=== PATIENT | male | born 1930 | race Caucasian/White ===

== ENCOUNTER 2017-05-11 15:53 | Emergency (ER) | payer MEDICARE, BC ==
[2017-05-11] MEDS ORDERED: Furosemide 20 MG Tab PO ONE (18:46)
--- NOTE | 2017-05-11 18:49 | EDM.PDOC ---
ED HPI GENERAL MEDICAL PROBLEM - General Chief Complaint: Fever Stated Complaint: FEVER Time Seen by Provider: 05/11/17 16:59 Source of Information: Reports: Patient, Family History Limitations: Reports: Altered Mental Status, Physical Impairment - History of Present Illness INITIAL COMMENTS - FREE TEXT/NARRATIVE: 86 years old w m with multiple medical issues, including CHF was brought to the ed by his SO due to mild elevation of his temp to 100 F. Pt is wheelchair bound , unable to ambulate for several years. Pt received Tylenol [employer]IST. Temp on arrival was 36.6. Pt denies any other acute medical issue BP 136/93 Temp 36.7 pulse ox RA 94% RR 16 Onset: Gradual Onset Date: 05/07/17 Onset Time: 07:00 Duration: Day(s):, Getting Worse Location: Reports: Chest Quality: Reports: Other (chf) Severity: Mild Improves with: Reports: Rest Worsens with: Reports: Movement Associated Symptoms: Reports: No Other Symptoms - Related Data Allergies Allergy/AdvReac Type Severity Reaction Status Date / Time No Known Allergies Allergy Verified 05/11/17 16:57 Home Meds: Home Meds Ca Cmb No.1/Vit D3/B-6/FA/B12 [Vitamin D3 1,000 Unit] 1 each PO DAILY 03/19/13 [ History] Dexameth/Neomycin/Polymyxin B [Maxitrol Ophth Susp] 5 ml EYERT DAILY 03/19/13 [ History] Metoprolol Succinate [Toprol XL] 25 mg PO DAILY 03/19/13 [History] Multivitamins/Minerals/Lutein [Certavite SR with Lutein] 1 tab PO DAILY [History] Omeprazole [Prilosec] 40 mg PO DAILY 03/19/13 [History] Potassium Chloride 20 meq PO DAILY 03/19/13 [History] Acetaminophen [Tylenol] 650 mg PO Q4H PRN 03/23/13 [History] Benazepril/Hydrochlorothiazide [Benazepril-HCTZ 20-12.5 MG Tablet] 1.5 tab PO DAILY 03/23/13 [History] Bisacodyl [Biscolax] 10 mg RECTAL DAILY PRN 03/23/13 [History] Furosemide [Lasix] 20 mg PO BID 03/23/13 [History] Glycerin 1 each RC ASDIRECTED PRN 03/23/13 [History] Hydrocodone/Acetaminophen [[place] 5-325] 1 tab PO Q4H PRN 03/23/13 [History] Iron Polysaccharides Complex [Ferrex 150] 1 cap PO DAILY 03/23/13 [History] Magnesium Hydroxide [Milk of Magnesia] 30 ml PO DAILY PRN 03/23/13 [History] Menthol [Cough Drops] 4.6 mg MM ASDIRECTED PRN 03/23/13 [History] Na Phos,M-B/Na Phos,DI-B [Fleet Enema] 1 bottle RECTAL DAILY PRN 03/23/13 [ History] PEG 400/Propylene Glycol [Systane 0.4-0.3%] 2 drop EYEBOTH BID PRN 03/23/13 [ History] Rifampin 300 mg PO DAILY 03/23/13 [History] Sucralfate [Carafate] 1 gm PO ACBED 03/23/13 [History] guaiFENesin [Cough Syrup] 2 tsp PO Q4HR PRN 03/23/13 [History] Past Medical History Cardiovascular History: Reports: Afib, Hypertension Respiratory History: Reports: Sleep Apnea Psychiatric History: Reports: Depression Endocrine/Metabolic History: Reports: Diabetes, Type II Hematologic History: Reports: Anemia, Anticoagulation Therapy Oncologic (Cancer) History: Reports: Other (See Below) Other Oncologic History: malig neoplasm prostate Dermatologic History: Reports: Other (See Below) Other Dermatologic History: stasis dermatitis RLE - Past Surgical History Musculoskeletal Surgical History: Reports: Hip Replacement, Knee Replacement Social & Family History - Tobacco Use Smoking Status *Q: Never Smoker Second Hand Smoke Exposure: No - Caffeine Use Caffeine Use: Reports: Coffee - Alcohol Use Days Per Week of Alcohol Use: 0 - Recreational Drug Use Recreational Drug Use: No ED ROS GENERAL - Review of Systems Review Of Systems: Unable To Obtain ED EXAM, GENERAL - Physical Exam Exam: See Below Exam Limited By: Physical Impairment General Appearance: Alert, WD/WN, Mild Distress Eye Exam: Bilateral Eye: Normal Inspection Ears: Normal External Exam Ear Exam: Bilateral Ear: Auricle Normal Nose: Normal Inspection Throat/Mouth: Normal Inspection, Normal Lips Head: Atraumatic, Normocephalic Neck: Normal Inspection, Other (pos JVD) Respiratory/Chest: Crackles (minor) Cardiovascular: Normal Peripheral Pulses Peripheral Pulses: 1+: Brachial (L), Brachial (R) GI/Abdominal: Normal Bowel Sounds (Male) Exam: Deferred Rectal (Males) Exam: Deferred Back Exam: Normal Inspection Extremities: Pedal Edema (chronic) Neurological: Alert, Oriented, CN II-XII Intact, Normal Cognition, Other ( wheelchair) Psychiatric: Normal Affect, Normal Mood Skin Exam: Warm, Dry, Intact Lymphatic: No Adenopathy Course - Vital Signs Text/Narrative:: 86 years old w m with multiple medical issues, including CHF was brought to the ed by his SO due to mild elevation of his temp to 100 F. Pt is wheelchair bound , unable to ambulate for several years. Pt received Tylenol [employer]. Temp on arrival was 36.6. Pt denies any other acute medical issue BP 136/93 Temp 36.7 pulse ox RA 94% RR 16 PE: Obese 86 y.o.w.m NAD Minor cracles lower chest Imaging: CXR enlarged HS, no active CHF no infiltrate/pneumonia Labs: BNP . 4000 Impression: Elevated BNP, CHF Tx: Lasix Reexam: Improved Plan: D/C with instructions Imaging: Cardiomegaly, no CHF Tx: Lasix 20 mg Reexam: Improved Plan: D/C with instructions Last Recorded V/S: Last Vital Signs Temp 37.2 C 05/11/17 19:00 Pulse 77 05/11/17 19:00 Resp 16 05/11/17 19:00 BP 133/66 05/11/17 19:00 Pulse Ox 98 05/11/17 19:00 - Orders/Labs/Meds Orders: Active Orders 24 hr Category Date Time Status CXR [Chest 2V] [CR] Stat Exams 05/11/17 16:17 Taken Labs: Laboratory Tests 05/11/17 05/11/17 05/11/17 Range/Units 17:55 17:55 17:55 WBC 11.3 (4.5-12.0) X10-3/uL RBC 4.61 (4.30-5.75) x10(6)uL Hgb 13.1 (11.5-15.5) g/dL Hct 38.6 (30.0-51.3) % MCV 83.6 (80-96) fL MCH 28.3 (27.7-33.6) pg MCHC 33.9 (32.2-35.4) g/dL RDW 16.1 H (11.5-15.5) % Plt Count 207 (125-369) X10(3)uL MPV 8.3 (7.4-10.4) fL Neut % (Auto) 77.3 (46-82) % Lymph % (Auto) 16.4 (13-37) % [place] % (Auto) 5.1 (4-12) % Eos % (Auto) 1 (1.0-5.0) % Baso % (Auto) 0 (0-2) % Neut # (Auto) 8.7 H (1.6-8.3) # Lymph # (Auto) 1.9 (0.6-5.0) # [place] # (Auto) 0.6 (0.0-1.3) # Eos # (Auto) 0.1 (0.0-0.8) # Baso # (Auto) 0.0 (0.0-0.2) # Sodium 134 L (135-145) mmol/L Potassium 4.3 (3.5-5.3) mmol/L Chloride 101 (100-110) mmol/L Carbon Dioxide 23 (23-29) mmol/L BUN 18 (8-23) mg/dL Creatinine 1.1 (0.6-1.3) mg/dL Est Cr Clr Drug Dosing 59.75 mL/min Estimated GFR (MDRD) > 60 (>60) BUN/Creatinine Ratio 16.4 (9-20) Glucose 172 H (80-116) mg/dL Lactic Acid 1.4 (0.5-2.2) mmol/L Calcium 8.9 (8.6-10.2) mg/dL NT-Pro-B Natriuret Pep (5-450) pg/mL 05/11/ Range/Units 17:55 WBC (4.5-12.0) X10-3/uL RBC (4.30-5.75) x10(6)uL Hgb (11.5-15.5) g/dL Hct (30.0-51.3) % MCV (80-96) fL MCH (27.7-33.6) pg MCHC (32.2-35.4) g/dL RDW (11.5-15.5) % Plt Count (125-369) X10(3)uL MPV (7.4-10.4) fL Neut % (Auto) (46-82) % Lymph % (Auto) (13-37) % [place] % (Auto) (4-12) % Eos % (Auto) (1.0-5.0) % Baso % (Auto) (0-2) % Neut # (Auto) (1.6-8.3) # Lymph # (Auto) (0.6-5.0) # [place] # (Auto) (0.0-1.3) # Eos # (Auto) (0.0-0.8) # Baso # (Auto) (0.0-0.2) # Sodium (135-145) mmol/L Potassium (3.5-5.3) mmol/L Chloride (100-110) mmol/L Carbon Dioxide (23-29) mmol/L BUN (8-23) mg/dL Creatinine (0.6-1.3) mg/dL Est Cr Clr Drug Dosing mL/min Estimated GFR (MDRD) (>60) BUN/Creatinine Ratio (9-20) Glucose (80-116) mg/dL Lactic Acid (0.5-2.2) mmol/L Calcium (8.6-10.2) mg/dL NT-Pro-B Natriuret Pep 4531 H (5-450) pg/mL Meds: Medications Discontinued Medications Generic Name Dose Route Start Last Admin Trade Name Freq PRN Reason Stop Dose Admin Furosemide 20 mg 05/11/17 18:46 05/11/17 18:52 Lasix PO 05/11/17 18:47 20 mg ONETIME ONE Administration Departure - Departure Time of Disposition: 18:48 Disposition: Home, Self-Care 01 Condition: Fair Clinical Impression: CHF (congestive heart failure) - Discharge Information Referrals: Nicholas Trejo MD [Primary Care Provider] - Forms: ED Department Discharge Additional Instructions: Please take increase lasix to 20 mg twice daily till seen by your PMD. Please come back if your symptoms get worse acutely - My Orders Last 24 Hours: My Active Orders 05/11/17 16:17 CXR [Chest 2V] [CR] Stat - Assessment/Plan Last 24 Hours: My Active Orders 05/11/17 16:17 CXR [Chest 2V] [CR] Stat
[2017-05-11 19:01] VITALS: BP 133/66
== END 2017-05-11 19:00 | disposition home or self-care (01) ==
LOC: FB.ED 15:53
DX: I11.0 Hypertensive heart disease with heart failure (principal); I50.9 Heart failure, unspecified; E11.9 Type 2 diabetes mellitus without complications; R79.89 Other specified abnormal findings of blood chemistry
CPT/HCPCS: 36415; 71020; 80048; 83605; 83880; 85025; 99284; A9270

== ENCOUNTER 2017-12-08 13:45 | Emergency (ER) | payer MEDICARE, BC ==
--- NOTE | 2017-12-08 13:57 | EDM.PDOC ---
ED HPI GENERAL MEDICAL PROBLEM - General Chief Complaint: General Stated Complaint: WEAKNESS Time Seen by Provider: 12/08/17 13:45 Source of Information: Reports: Patient, Family, Correction Records, RN History Limitations: Reports: Physical Impairment, Respiratory Distress, Other ( poor historian) - History of Present Illness INITIAL COMMENTS - FREE TEXT/NARRATIVE: 87 y.o.w.m with a h/o spinal stenosis, bedridden, unable to ambulate was transferred from the group home to the ed because his noticed the patient is breathing faster then usual and feel weak. No F/C, cough, no N/V no other acute medical issues. BP 137/73- Pulse 76 RR 22 Pulse ox 99% on RA temp 36.7 Onset Date: 12/06/17 Onset Time: 09:10 Duration: Day(s): Location: Reports: Chest Quality: Reports: Other (sob, RR increased) Severity: Mild Improves with: Reports: Rest Worsens with: Reports: Movement Context: Reports: Other (sedentary livestyle) Associated Symptoms: Reports: Weakness - Related Data Allergies Allergy/AdvReac Type Severity Reaction Status Date / Time Influenza Virus Vaccines Allergy Other Verified 12/08/17 13:54 Home Meds: Home Meds Multivitamins/Minerals/Lutein [Certavite SR with Lutein] 1 tab PO DAILY [History] Potassium Chloride 20 meq PO TID 03/19/13 [History] Acetaminophen [Tylenol] 650 mg PO Q4H PRN 03/23/13 [History] Bisacodyl [Biscolax] 10 mg RECTAL DAILY PRN 03/23/13 [History] Furosemide [Lasix] 20 mg PO DAILY 03/23/13 [History] Magnesium Hydroxide [Milk of Magnesia] 30 ml PO DAILY PRN 03/23/13 [History] Menthol [Cough Drops] 4.6 mg MM ASDIRECTED PRN 03/23/13 [History] PEG 400/Propylene Glycol [Systane 0.4-0.3%] 1 drop EYEBOTH DAILY 03/23/13 [ History] guaiFENesin [Cough Syrup] 2 tsp PO Q4HR PRN 03/23/13 [History] .Refresh Lacri-Lube 1 drop EYERT DAILY 12/08/17 [History] Acetaminophen [Acetaminophen Extra Strength] 1,000 mg PO BID 12/08/17 [History] Aspirin 81 mg PO DAILY 12/08/17 [History] Citalopram [Citalopram HBr] 10 mg PO DAILY 12/08/17 [History] Furosemide [Lasix] 40 mg PO DAILY 12/08/17 [History] Levofloxacin [Levaquin] 250 mg PO DAILY #2 tab 12/08/17 [Rx] Loperamide [Imodium AD] 2 mg PO QID 12/08/17 [History] Sennosides/Docusate Sodium [Senna Plus Tablet] 1 tab PO BID 12/08/17 [History] Warfarin Sodium [Coumadin] 3 mg PO MOFR 12/08/17 [History] Warfarin Sodium [Coumadin] 4 mg PO SUTUWETHSA 12/08/17 [History] glipiZIDE [Glucotrol XL] 2.5 mg PO DAILY 12/08/17 [History] metFORMIN HCl [Metformin HCl] 500 mg PO BID 12/08/17 [History] Past Medical History Cardiovascular History: Reports: Afib, Hypertension Respiratory History: Reports: Sleep Apnea Psychiatric History: Reports: Depression Endocrine/Metabolic History: Reports: Diabetes, Type II Hematologic History: Reports: Anemia, Anticoagulation Therapy Oncologic (Cancer) History: Reports: Other (See Below) Other Oncologic History: malig neoplasm prostate Dermatologic History: Reports: Other (See Below) Other Dermatologic History: stasis dermatitis RLE - Past Surgical History Musculoskeletal Surgical History: Reports: Hip Replacement, Knee Replacement Social & Family History - Caffeine Use Caffeine Use: Reports: Coffee ED ROS GENERAL - Review of Systems Review Of Systems: Unable To Obtain (poor historian) ED EXAM, GENERAL - Physical Exam Exam: See Below Exam Limited By: Physical Impairment General Appearance: Alert, No Apparent Distress, Obese Eye Exam: Bilateral Eye: Normal Inspection Ears: Normal External Exam Ear Exam: Bilateral Ear: Auricle Normal Nose: Normal Inspection, Normal Mucosa, No Blood Throat/Mouth: Normal Inspection, Normal Lips, Normal Voice, No Airway Compromise Head: Atraumatic, Normocephalic Neck: Normal Inspection, Supple, Non-Tender, Full Range of Motion Respiratory/Chest: No Respiratory Distress, Lungs Clear, No Accessory Muscle Use , Chest Non-Tender Cardiovascular: Normal Peripheral Pulses, Regular Rate, Rhythm, No Edema, No Gallop Peripheral Pulses: 1+: Carotid (L) GI/Abdominal: Normal Bowel Sounds, Soft, Non-Tender, No Organomegaly (Male) Exam: Deferred Rectal (Males) Exam: Deferred Back Exam: Normal Inspection, Full Range of Motion Extremities: Normal Inspection, Limited Range of Motion Neurological: Alert, Oriented, CN II-XII Intact, Normal Cognition, Abnormal Gait (unable to ambulate) Psychiatric: Normal Affect Skin Exam: Warm, Dry, Intact, Normal Color, No Rash Lymphatic: No Adenopathy Course - Vital Signs Text/Narrative:: 87 y.o.w.m with a h/o spinal stenosis, bedridden, unable to ambulate was transferred from the group home to the ed because his noticed the patient is breathing faster then usual and feel weak. No F/C, cough, no N/V no other acute medical issues. BP 137/73- Pulse 76 RR 22 Pulse ox 99% on RA temp 36.7 PE: WNWD WM in NAD Labs: CBC WNL Na 132 K 3.9 UA pos for UTI no hematuria Imaging: CXR NAD as per RAD, No CHF, No pneumonia Impression: UTI Tx: Levoquin 250 mg po x 1 (pharmacia consultated) Reexam: Improved Plan: D/C with instructions Last Recorded V/S: Last Vital Signs Temp 37.2 C 12/08/17 16:40 Pulse 79 12/08/17 16:40 Resp 20 12/08/17 16:40 BP 117/63 12/08/17 16:40 Pulse Ox 99 12/08/17 16:40 - Orders/Labs/Meds Orders: Active Orders 24 hr Category Date Time Status CXR [Chest 2V] [CR] Stat Exams 12/08/17 14:59 Taken Chest 1V Frontal [CR] Stat Exams 12/08/17 13:57 Taken CULTURE URINE [RM] Routine Lab 12/08/17 14:17 Received UA W/MICROSCOPIC [URIN] Stat Lab 12/08/17 14:17 Ordered Labs: Laboratory Tests 12/08/17 12/08/17 12/08/17 Range/Units 14:00 14:11 14:11 WBC 9.2 (4.5-12.0) X10-3/uL RBC 4.84 (4.30-5.75) x10(6)uL Hgb 13.7 (11.5-15.5) g/dL Hct 40.2 (30.0-51.3) % MCV 83.2 (80-96) fL MCH 28.3 (27.7-33.6) pg MCHC 34.0 (32.2-35.4) g/dL RDW 14.5 (11.5-15.5) % Plt Count 244 (125-369) X10(3)uL MPV 8.2 (7.4-10.4) fL Neut % (Auto) 59.8 (46-82) % Lymph % (Auto) 23.0 (13-37) % [place] % (Auto) 11.9 (4-12) % Eos % (Auto) 5 (1.0-5.0) % Baso % (Auto) 1 (0-2) % Neut # (Auto) 5.5 (1.6-8.3) # Lymph # (Auto) 2.1 (0.6-5.0) # [place] # (Auto) 1.1 (0.0-1.3) # Eos # (Auto) 0.4 (0.0-0.8) # Baso # (Auto) 0.1 (0.0-0.2) # PT 35.3 H* (8.7-11.1) INR 3.69 H (0.89-1.13) Sodium (135-145) mmol/L Potassium (3.5-5.3) mmol/L Chloride (100-110) mmol/L Carbon Dioxide (21-32) mmol/L BUN (7-18) mg/dL Creatinine (0.70-1.30) mg/dL Est Cr Clr Drug Dosing mL/min Estimated GFR (MDRD) (>60) BUN/Creatinine Ratio (9-20) Glucose (80-116) mg/dL Lactic Acid (0.4-2.2) mmol/L Calcium (8.6-10.2) mg/dL NT-Pro-B Natriuret Pep 3068 H* (<=450) pg/mL Urine Color (YELLOW) Urine Appearance (CLEAR) Urine pH (5.0-6.5) Ur Specific [place] (1.010-1.025) Urine Protein (NEGATIVE) mg/dL Urine Glucose (UA) (NEGATIVE) mg/dL Urine Ketones (NEGATIVE) mg/dL Urine Occult Blood (NEGATIVE) Urine Nitrite (NEGATIVE) Urine Bilirubin (NEGATIVE) Urine Urobilinogen (NEGATIVE) mg/dL Ur Leukocyte Esterase (NEGATIVE) Urine RBC (0) Urine WBC (0) Ur Squamous Epith Cells (NS,R,O) Urine Bacteria (NS) 12/08/17 12/08/17 12/08/17 Range/Units 14:11 14:17 15:10 WBC (4.5-12.0) X10-3/uL RBC (4.30-5.75) x10(6)uL Hgb (11.5-15.5) g/dL Hct (30.0-51.3) % MCV (80-96) fL MCH (27.7-33.6) pg MCHC (32.2-35.4) g/dL RDW (11.5-15.5) % Plt Count (125-369) X10(3)uL MPV (7.4-10.4) fL Neut % (Auto) (46-82) % Lymph % (Auto) (13-37) % [place] % (Auto) (4-12) % Eos % (Auto) (1.0-5.0) % Baso % (Auto) (0-2) % Neut # (Auto) (1.6-8.3) # Lymph # (Auto) (0.6-5.0) # [place] # (Auto) (0.0-1.3) # Eos # (Auto) (0.0-0.8) # Baso # (Auto) (0.0-0.2) # PT (8.7-11.1) INR (0.89-1.13) Sodium 132 L (135-145) mmol/L Potassium 4.1 (3.5-5.3) mmol/L Chloride 97 L D (100-110) mmol/L Carbon Dioxide 28 (21-32) mmol/L BUN 22 H (7-18) mg/dL Creatinine 1.4 H (0.70-1.30) mg/dL Est Cr Clr Drug Dosing 43.60 mL/min Estimated GFR (MDRD) 48 L (>60) BUN/Creatinine Ratio 15.7 (9-20) Glucose 168 H (80-116) mg/dL Lactic Acid 2.1 (0.4-2.2) mmol/L Calcium 9.1 (8.6-10.2) mg/dL NT-Pro-B Natriuret Pep (<=450) pg/mL Urine Color Yellow (YELLOW) Urine Appearance Cloudy (CLEAR) Urine pH 5.0 (5.0-6.5) Ur Specific [place] 1.015 (1.010-1.025) Urine Protein Negative (NEGATIVE) mg/dL Urine Glucose (UA) Normal (NEGATIVE) mg/dL Urine Ketones Negative (NEGATIVE) mg/dL Urine Occult Blood Moderate H (NEGATIVE) Urine Nitrite Negative (NEGATIVE) Urine Bilirubin Negative (NEGATIVE) Urine Urobilinogen Normal (NEGATIVE) mg/dL Ur Leukocyte Esterase Large H (NEGATIVE) Urine RBC 5-10 (0) Urine WBC >100 H (0) Ur Squamous Epith Cells Occasional (NS,R,O) Urine Bacteria Many H (NS) Meds: Medications Discontinued Medications Generic Name Dose Route Start Last Admin Trade Name Freq PRN Reason Stop Dose Admin Levofloxacin 500 mg 12/08/17 14:48 12/08/17 15:09 Levaquin PO 12/08/17 14:49 Not Given ONETIME ONE Levofloxacin 250 mg 12/08/17 14:52 12/08/17 14:54 Levaquin PO 12/08/17 14:53 250 mg Q24H STA Administration Departure - Departure Time of Disposition: 16:29 Disposition: Home, Self-Care 01 Condition: Good Clinical Impression: UTI (urinary tract infection) Qualifiers: Urinary tract infection type: acute cystitis Hematuria presence: without hematuria Qualified Code(s): N30.00 - Acute cystitis without hematuria - Discharge Information Prescriptions: Levofloxacin [Levaquin] 250 mg PO DAILY #2 tab Instructions: Urinary Tract Infection, Adult Referrals: Nicholas Trejo MD [Primary Care Provider] - Forms: ED Department Discharge Additional Instructions: Please take the Abx as recommended, please f/u come back if your symptoms get worse acutely. Change Coumadine to 3 mg daily, INR check in 3 days. - My Orders Last 24 Hours: My Active Orders 12/08/17 13:57 Chest 1V Frontal [CR] Stat 12/08/17 14:17 CULTURE URINE [RM] Routine UA W/MICROSCOPIC [URIN] Stat 12/08/17 14:59 CXR [Chest 2V] [CR] Stat - Assessment/Plan Last 24 Hours: My Active Orders 12/08/17 13:57 Chest 1V Frontal [CR] Stat 12/08/17 14:17 CULTURE URINE [RM] Routine UA W/MICROSCOPIC [URIN] Stat 12/08/17 14:59 CXR [Chest 2V] [CR] Stat
[2017-12-08] MEDS ORDERED: Levofloxacin 250 MG Tab PO ONE (14:48)
[2017-12-08] MEDS ORDERED: Levofloxacin 250 MG Tab PO STA (14:52)
[2017-12-08 17:08] VITALS: BP 117/63
--- NOTE | 2017-12-09 07:46 | CR ---
INDICATION: Coughing up blood. CHEST: A single AP upright portable view of the chest was obtained 12/08/2017 and compared with 05/11/2017. The upper lung field pulmonary vasculature was slightly prominent, raising question of a minimal degree or early CHF. The heart is slightly enlarged. Calcification is seen in the arch of the aorta. Dextroconvex scoliosis of the upper middle thoracic spine is noted. Heavy markings are noted in the lung bases but particularly on the left, making it difficult to exclude pneumonia. Interstitial changes may be on the basis of fibrosis, edema, and/or pneumonia. Full inspiration PA and lateral views of the chest may be helpful for further evaluation, when clinically possible. Report was given by phone to Dr. Gusman at 1500 hours on 12/08/2017. [facility]
--- NOTE | 2017-12-09 08:01 | CR ---
INDICATION: Coughing up blood, need better visualization than portable study. 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 Heavy markings are noted at the lung bases, especially on the left, making it difficult to entirely exclude minimal patchy bronchopneumonia; however, no consolidating pneumonia or effusion was seen. No definite evidence of CHF was seen. IMPRESSION: No definite acute process. Report was called to Dr. Gusman at 1628 hours on 12/08/2017. [facility]
== END 2017-12-08 16:40 | disposition home or self-care (01) ==
LOC: FB.ED 13:45
DX: N30.00 Acute cystitis without hematuria (principal); I10 Essential (primary) hypertension; E11.9 Type 2 diabetes mellitus without complications; I48.91 Unspecified atrial fibrillation; Z88.7 Allergy status to serum and vaccine; Z79.82 Long term (current) use of aspirin; Z79.899 Other long term (current) drug therapy; Z79.01 Long term (current) use of anticoagulants; Z79.84 Long term (current) use of oral hypoglycemic drugs
CPT/HCPCS: 36415; 71045; 71046; 80048; 81001; 83605; 83880; 85025; 85610; 87086; 87088; 99285; A9270; 87186

== ENCOUNTER 2018-02-27 13:34 | Observation (INO) | payer MEDICARE, BC ==
[2018-02-27] MEDS ORDERED: Acetaminophen 325 MG Tab PO PRN (13:39)
[2018-02-27] MEDS ORDERED: Sodium Chloride 0.9% 250 ML IV SCH (14:30)
[2018-02-27] MEDS: Sodium Chloride 0.9% 10 ML Syringe FLUSH PRN ×2 (14:45→16:45)
[2018-02-27] MEDS ORDERED: ceFAZolin 2 GM in Premix Bag 1 BAG IV SCH (14:45)
[2018-02-27] MEDS: Sodium Chloride 0.9% 250 ML IV SCH ×3 (15:20→17:45)
[2018-02-27] MEDS: Potassium Chloride 20 MEQ Tab.ER *PTOM PO SCH ×2 (15:59→21:03)
[2018-02-27] MEDS: ceFAZolin 2 GM in Premix Bag 1 BAG IV SCH (16:23)
[2018-02-27] MEDS: CLINDAMYCIN HCL 150 MG PO SCH ×2 (17:41→21:03)
[2018-02-27] MEDS: metFORMIN 500 MG Tab *PTOM PO SCH (17:43)
[2018-02-27] MEDS: PROPYLENE GLYCOL EYEBOTH SCH (21:04)
[2018-02-27] MEDS: POLYETHYLENE GLYCOL 400 EYEBOTH SCH (21:04)
[2018-02-27] MEDS: Terbinafine 1% Crm 30 GM Tube TOP SCH ×2 (21:10→21:11)
[2018-02-28] MEDS: ceFAZolin 2 GM in Premix Bag 1 BAG IV SCH ×3 (00:19→08:08)
[2018-02-28] MEDS: Sodium Chloride 0.9% 10 ML Syringe FLUSH PRN ×3 (00:34→09:00)
[2018-02-28] MEDS ORDERED: Sodium Chloride 0.9% 10 ML Syringe FLUSH PRN (08:55)
[2018-02-28] MEDS ORDERED: Levofloxacin 250 MG Tab PO SCH (09:00)
[2018-02-28] MEDS: Lactated Ringers 1,000 ML IV SCH ×2 (09:00→16:11)
[2018-02-28] MEDS ORDERED: Propofol 200 MG/20 ML SDV IV ONE (09:45)
[2018-02-28] MEDS ORDERED: Ondansetron 4 MG/2 ML SDV IVPUSH ONE (09:45)
[2018-02-28] MEDS ORDERED: Ketamine 500 mg/10 ML MDV IV ONE (09:45)
[2018-02-28] MEDS ORDERED: Bupivacaine 0.5% 30 ML SDV INJECT ONE (10:16)
[2018-02-28] MEDS: metFORMIN 500 MG Tab *PTOM PO SCH ×2 (12:50→18:11)
[2018-02-28] MEDS: Potassium Chloride 20 MEQ Tab.ER *PTOM PO SCH ×3 (12:51→20:03)
[2018-02-28] MEDS: GLIPIZIDE 5 MG PO SCH (12:51)
[2018-02-28] MEDS: Polyethylene Glycol 3350 Powder 238 GM Bot *PTOM PO SCH (12:51)
[2018-02-28] MEDS: CLINDAMYCIN HCL 150 MG PO SCH ×4 (12:51→20:03)
--- NOTE | 2018-02-28 15:25 | OR ---
DATE OF OPERATION: 02/28/2018 SURGEON: Carmelo Santo DO PREOPERATIVE DIAGNOSIS: Right knee cellulitis. POSTOPERATIVE DIAGNOSES: Right knee cellulitis including skin, subcutaneous tissue, deep fascia, and tendon. PROCEDURES: 1. Irrigation debridement, right knee. 2. Application of small wound VAC with measurements 2.5 cm x 2.5 cm x 0.5 cm. ANESTHESIA: Conscious sedation. FLUID: Lactated Ringer's solution. ESTIMATED BLOOD LOSS: Less than 10 mL. COMPLICATIONS: None. SPECIMEN: Aerobic and anaerobic cultures as well as tissue. DISCHARGE DISPOSITION: Stable to PACU. HISTORY/INDICATIONS FOR THE PROCEDURE: The patient was seen preoperatively by Dr. Wang, who consulted me. The patient previously seen his primary care physician, who had noticed a tracking infection. The patient had a right knee done by Dr. Pickering about approximately 5 years earlier. He did have a bad infection problem at that time, this did resolve. He states that he bumped his right knee during a transfer. He had increased cellulitis. Cultures were taken prior to the surgery, which showed Staph. I did place him on preoperative antibiotics at that point in time, and he was already on oral antibiotics. The risks and benefits of the procedure explained to the patient and family. Informed consent obtained. PROCEDURE IN DETAIL: The patient was seen preoperatively by myself and Anesthesia Staff in the preoperative holding area, where operative site was marked. He was brought to the operative suite by Anesthesia staff where conscious sedation was administered. The right lower extremity was then prepped and draped in a sterile manner. Time-out was called identifying the correct patient, correct procedure, the correct site, and that the antibiotics had been begun within the appropriate period of time. There was an area of drainage of approximately 0.75 cm in diameter with some soft tissue coming out. I then took cultures and was able to use a Q-tip from the culture to track where the area was on to the skin and it did not appear to go into the joint. I then removed any of the necrotic skin resulting in about 2.5 cm diameter area and then carefully debrided any of the soft tissue. This was down to the level of the patellar tendon as well as the medial patellar retinaculum inferior to the patella. Once I got this cleaned up and used a curette to freshen everything up and then used the Bovie electrocautery to control any bleeding. I then applied a small wound VAC and set the pressure to 125 mmHg. After this had been performed, we then transferred the patient to his hospital bed and taken to the PACU in stable condition. /[id number] AMILCAR/LYNNE
[2018-02-28] MEDS: Terbinafine 1% Crm 30 GM Tube TOP SCH (16:11)
[2018-02-28] MEDS: Ertapenem 1 GM in Sodium Chloride 0.9% 50 ML IV SCH (19:23)
[2018-02-28] MEDS: PROPYLENE GLYCOL EYEBOTH SCH (20:04)
[2018-02-28] MEDS: POLYETHYLENE GLYCOL 400 EYEBOTH SCH (20:04)
[2018-03-01] MEDS: Lactated Ringers 1,000 ML IV SCH ×3 (00:10→19:24)
[2018-03-01] MEDS: Polyethylene Glycol 3350 Powder 238 GM Bot *PTOM PO SCH (09:32)
[2018-03-01] MEDS: metFORMIN 500 MG Tab *PTOM PO SCH ×2 (09:33→18:09)
[2018-03-01] MEDS: CLINDAMYCIN HCL 150 MG PO SCH (09:34)
[2018-03-01] MEDS: Furosemide 20 MG Tab *PTOM PO SCH ×2 (09:34→13:16)
[2018-03-01] MEDS: Citalopram 10 MG Tab *PTOM PO SCH (09:34)
[2018-03-01] MEDS: GLIPIZIDE 5 MG PO SCH (09:35)
[2018-03-01] MEDS: Potassium Chloride 20 MEQ Tab.ER *PTOM PO SCH ×3 (09:35→20:38)
[2018-03-01] MEDS: Ertapenem 1 GM in Sodium Chloride 0.9% 50 ML IV SCH (19:26)
[2018-03-01] MEDS: POLYETHYLENE GLYCOL 400 EYEBOTH SCH (20:39)
[2018-03-01] MEDS: PROPYLENE GLYCOL EYEBOTH SCH (20:39)
[2018-03-02] MEDS: Lactated Ringers 1,000 ML IV SCH (03:45)
--- NOTE | 2018-03-02 07:12 | PN ---
DATE SEEN: 02/28/2018 SUBJECTIVE: John Cat is an 87-year-old male, scheduled for exploration of right knee wound and intervention. Dr. Santo, provider of record. He had a pretty good night. Slept well. No particular complaints. OBJECTIVE: VITAL SIGNS: 36.8, pulse of 88, 142/78, 18, 94%. GENERAL: A bit drowsy but appropriate. Neck benign. Thyroid small. CHEST: Clear in all lung camacho. HEART: Heart sounds distant. ABDOMEN: Benign, wound inspection by Dr. Santo. ASSESSMENT: Stable for surgery. PLAN: EKG was reviewed. Atrial fibrillation, known, rate controlled, 79. Coumadin had been on board, INR today 1.96. No contraindications for controlled surgical intervention. /[id number] RAVI/LYNNE
--- NOTE | 2018-03-02 07:12 | PREOP ---
ADMISSION DATE: 02/27/2018 REASON FOR VISIT: Right knee open sore. HISTORY OF PRESENT ILLNESS: John Cat is an 87-year-old, male, a resident of [facility], seen by Dr. Wang and then in consultation with Orthopedics for an open wound in the right leg. Timing, duration, and circumstances uncertain on my part, the patient's history of little benefit but no pain by description. Nursing staff who has cared from the longterm has commented that this sore is open and closed on repetitive times. Surgical management is planned for tomorrow under orthopedics management. MEDICATIONS: Daily medications include: 1. Senna-S 1 p.o. daily, constipation. 2. Furosemide 40 mg the morning, 20 at noon; edema. 3. Systane 1 drop each eye, dry eyes. 4. Cerovite formula tablet 1 daily, nutrition. 5. Refresh p.r.n. eye drops. 6. Citalopram 10 mg 1 p.o. daily, mood stabilizer. 7. Metformin 500 mg 1 p.o. b.i.d., NIDDM. 8. Dulcolax suppository p.r.n. constipation. 9. Beclomethasone cream b.i.d. p.r.n. dry skin. 10.Afrin each nostril b.i.d. p.r.n. 11.Warfarin per protocol. 12.Acetaminophen p.r.n. for pain. 13.Potassium chloride 20 mEq 1 p.o. t.i.d. hypokalemia. 14.Milk of magnesia p.r.n. 15.Biotene mouthwash p.r.n. 16.Baby aspirin. ALLERGIES: No medication, environmental, or latex allergies. PAST MEDICAL HISTORY: Significant for multiple procedures including cholecystectomy, bilateral hip arthroplasty, bilateral knee arthroplasty, prosthetic right eye, fusion of his lumbar spine, and cataract surgery of left eye. Chronic illnesses include hypertension; chronic atrial fibrillation, on Coumadin therapy; osteoarthritis; and prosthetic right eye. 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 in good health. The patient is presently at longterm. Smoked remotely in the past. Minimal alcohol consumption. No illicit drug use. FAMILY HISTORY: Noncontributory due to age. REVIEW OF SYSTEMS: CONSTITUTIONAL: For the most part, care dependent. HEENT: Absent vision, right eye. Hearing, some difficulty in crowds. Oropharynx, a few teeth still in place. CHEST: No cough, wheeze, or congestion. CARDIOVASCULAR: No chest pain, palpitations, or syncope. GI: Regular predictable stools, occasional constipation. : Some incontinence in diaper today. MUSCULOSKELETAL: Generalized joint complaints. NEUROLOGIC: Thought processing reasonable. PHYSICAL EXAMINATION: VITAL SIGNS: 36.8; 155/82; pulse is irregularly irregular at 101; 94% in room air; and 18 respirations. GENERAL: Elderly gentleman, appears appropriate age. Speech and conduct appropriate. HEENT: Left eye, funduscopic benign. Prosthesis in right eye. Bright tympanic membranes. Decreased hearing. Clear nasal discharge. Mouth and oropharynx, clear. A few teeth in place, intact, no loose teeth. NECK: No adenopathy. Thyroid small. CHEST: Clear in all lung camacho. No adventitious sounds. HEART: Regular, without ectopy or murmur. BREASTS: Normal male breasts. ABDOMEN: Benign. Well-healed surgical scar of right upper quadrant. AND RECTAL: Deferred. EXTREMITIES: Moderate edema. Ulcerative lesion in medial left knee, total arthroplasty surgical scars. Pulses diminished in both lower extremities. Venous stasis changes. LABORATORY STUDIES: White count 9000, hemoglobin 12.8, and hematocrit 39.5. Sodium 134, GFR 59. Radiographs none. ASSESSMENT: Preoperative examination for surgical debridement of right medial knee lesion, Orthopedics intervention. PLAN: Risks, benefits, and expectations have been discussed with Orthopedics, complementary care and well being, fresh frozen plasma being given as an appropriate alternative to normalize his INR, brief duration without Coumadin not problematic. All medications can be held on the night of the procedure. /[id number] RAVI/LYNNE
--- NOTE | 2018-03-02 07:15 | PN ---
DATE SEEN: 03/01/2018 HISTORY OF PRESENT ILLNESS: Mr. Cat is an 87-year-old male, who underwent exploration of the right knee wound and placement of a suction catheter. Dr. Carmelo Santo, provider of record. Presently on ertapenem intravenously, 1 g q.[address] hours. Wound VAC in place. Describes no pain. PHYSICAL EXAMINATION: VITAL SIGNS: 36.8, 73, 135/80, 18, 92% on 2 L. GENERAL: Appears comfortable. No pain. CHEST: Clear in all lung camacho. HEART: Without ectopy or murmur. ABDOMEN: Benign. EXTREMITIES: Wound VAC in place, right medial knee with appropriate serosanguinous bloody discharge. ASSESSMENT: Wound infection, right knee. PLAN: Cultures are pending, antibiotics in place. Length of time, discharge planning, and location still to be determined. /[id number] RAVI/LYNNE
[2018-03-02] MEDS: metFORMIN 500 MG Tab *PTOM PO SCH (08:41)
[2018-03-02] MEDS: Furosemide 20 MG Tab *PTOM PO SCH ×2 (08:42→12:22)
[2018-03-02] MEDS: Citalopram 10 MG Tab *PTOM PO SCH (08:47)
[2018-03-02] MEDS: GLIPIZIDE 5 MG PO SCH (08:48)
[2018-03-02] MEDS: Potassium Chloride 20 MEQ Tab.ER *PTOM PO SCH (08:49)
[2018-03-02] MEDS: Polyethylene Glycol 3350 Powder 238 GM Bot *PTOM PO SCH (08:49)
[2018-03-02 12:57] VITALS: BP 128/76
--- NOTE | 2018-03-03 12:59 | DISCH ---
DISCHARGE DATE: 03/02/2018 REASON FOR HOSPITALIZATION: Complicated left knee wound, surgical debridement and wound VAC/cellulitis. HOSPITAL COURSE: John aCt is an 87-year-old male, admitted with complicated wound, medial aspect, right knee. Seen by Dr. Wang, referred to Dr. Santo. He was taken to the OR on 02/28; underwent debridement, culture, and appropriate management; wound VAC was placed. Post wound VAC, antibiotics were instituted, ertapenem 1 g q.24 hours. Wound VAC had an issue of success on Friday the , will be readdressed on the morning of the . Spoke with Dr. Santo; antibiotics will be dependent upon culture, minimum of 3 weeks' time. PICC line had been ordered, delayed due to nursing access and will be performed either today or upon discharge at [facility]. Laboratory studies otherwise stable. PHYSICAL EXAMINATION: VITAL SIGNS: 36.5, 73, 96/56, 18, 93% on 2 L. GENERAL: Cooperative, conversant. NECK: Benign. Thyroid small. CHEST: Decreased breath sounds, but good air exchange. HEART: Sounds distant with occasional ectopy. ABDOMEN: Benign. EXTREMITIES: Wound, left knee, dressed; postsurgical changes present. PLAN: Discharged to [facility]; antibiotics per PICC line, 3 weeks' duration minimum, duration longer depending upon bug of choice. Followup appointments with Dr. Carmelo Santo, Orthopedics, [facility]. /[id number] RAVI/LYNNE
== END 2018-03-02 13:15 ==
LOC: FB.MS 13:34
PROVIDERS: ADMIT Orthopaedic Surgery; ATTEND Family Medicine
DX: L03.115 Cellulitis of right lower limb (principal); I10 Essential (primary) hypertension; H54.40 Blindness, one eye, unspecified eye; I48.2 Chronic atrial fibrillation; Z87.891 Personal history of nicotine dependence; Z79.84 Long term (current) use of oral hypoglycemic drugs; Z79.82 Long term (current) use of aspirin; Z79.01 Long term (current) use of anticoagulants; Z79.899 Other long term (current) drug therapy
CPT/HCPCS: 01320-QZ; 36415; 36430; 80048; 82962; 85025; 85610; 86850; 86900; 86901; 86920; 86922; 87070; 87075; 87205; 94150; 96361; 96365; 96366; 96367; 96375; 96376; A9270-GY; G0378; J0690; J1335; J2405; J2704; J3490; J7050; J7120; P9017

== ENCOUNTER 2018-03-03 11:02 | Emergency (ER) | payer MEDICARE, BC ==
[2018-03-03] MEDS ORDERED: Furosemide 40 MG/4 ML VIAL IVPUSH ONE ×2 (11:46→13:29)
--- NOTE | 2018-03-03 11:53 | EDM.PDOC ---
ED HPI GENERAL MEDICAL PROBLEM - General Chief Complaint: Respiratory Problem Stated Complaint: ASSESSMENT Time Seen by Provider: 03/03/18 11:40 Source of Information: Reports: Patient, Family History Limitations: Reports: No Limitations - History of Present Illness INITIAL COMMENTS - FREE TEXT/NARRATIVE: Presents from the [facility] with generalized swelling and 10 lb weight gain since last week. Patient underwent right prosthetic knee clean out due to infection on 02/28/[address] Santo and was hospitalized thereafter until yesterday. Patient has a history of heart failure and there is a possibility he could be fluid overloaded from the IVF he received. Per , patient had a few choking episodes yesterday. Denies chest pain or shortness of breath at this time. - Related Data Allergies Allergy/AdvReac Type Severity Reaction Status Date / Time Influenza Virus Vaccines Allergy Other Verified 03/03/18 12:00 Home Meds: Home Meds Multivitamins/Minerals/Lutein [Certavite SR with Lutein] 1 tab PO DAILY [History] Acetaminophen [Tylenol] 650 mg PO Q4H PRN 03/23/13 [History] Bisacodyl [Biscolax] 10 mg RECTAL Q72H PRN 03/23/13 [History] Furosemide [Lasix] 20 mg PO DAILY@119903/23/13 [History] Magnesium Hydroxide [Milk of Magnesia] 30 ml PO DAILY PRN 03/23/13 [History] Menthol [Cough Drops] 4.6 mg MM ASDIRECTED PRN 03/23/13 [History] PEG 400/Propylene Glycol [Systane Lubricant] 1 drop EYEBOTH DAILY@199903/23/13 [History] guaiFENesin [Cough Syrup] 200 mg PO Q4H PRN 03/23/13 [History] Acetaminophen [Acetaminophen Extra Strength] 1,000 mg PO BID 12/08/17 [History] Citalopram [Citalopram HBr] 10 mg PO DAILY 12/08/17 [History] Loperamide [Imodium AD] 2 mg PO ASDIRECTED 12/08/17 [History] Warfarin Sodium [Coumadin] 3 mg PO MOFR@12/08/17 [History] Warfarin Sodium [Coumadin] 4 mg PO SUTUWETHSA@199912/08/17 [History] metFORMIN HCl [Metformin HCl] 500 mg PO BIDMEALS 12/08/17 [History] Aspirin [Halfprin] 81 mg PO DAILY 02/27/18 [History] Betamethasone Dipropionate [Diprosone 0.05% Crm] 1 applic TOP BID PRN 02/27/18 [ History] Furosemide [Lasix] 40 mg PO DAILY@08 02/27/18 [History] Mineral Oil/Petrolatum,White [Lubricant Eye Ointment] 1 applic EYERT BEDTIME [History] Polyethylene Glycol 3350 [MiraLAX] 17 gm PO DAILY 02/27/18 [History] glipiZIDE [Glucotrol] 2.5 mg PO DAILY 02/27/18 [History] Ertapenem [INVanz] 1 gm IV Q24H 30 Days #30 vial 03/02/18 [Rx] Potassium Chloride [Klor-Con M20] 20 meq PO TID tab.er 03/02/18 [Rx] Past Medical History HEENT History: Reports: Hard of Hearing, Impaired Vision Cardiovascular History: Reports: Afib, Blood Clots/VTE/DVT, Heart Failure, Hypertension, Other (See Below) Other Cardiovascular History: venous insufficiency, chronic peripheral; director long term care 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 Respiratory History: Reports: Sleep Apnea, Other (See Below) Other Respiratory History: hx of thromboemobism Gastrointestinal History: Reports: Cholelithiasis Genitourinary History: Reports: BPH, Neurogenic Bladder, Prostate Disorder, Renal Calculus, Urinary Incontinence, Other (See Below) Other Genitourinary History: cancer of prostate; 2001 radiation seeds in prostate Musculoskeletal History: Reports: RA Psychiatric History: Reports: Depression, Other (See Below) Other Psychiatric History: recurrent derpressive disorder Endocrine/Metabolic History: Reports: Diabetes, Type II Hematologic History: Reports: Anemia, Anticoagulation Therapy Oncologic (Cancer) History: Reports: Other (See Below) Other Oncologic History: malig neoplasm prostate; skin cancer to face and right ear Dermatologic History: Reports: Other (See Below) Other Dermatologic History: stasis dermatitis RLE - Infectious Disease History Infectious Disease History: Reports: Chicken Pox, Influenza, Measles - Past Surgical History HEENT Surgical History: Reports: Cataract Surgery, Other (See Below) Other HEENT Surgeries/Procedures: Cataract surgery to left eye 2015 Cardiovascular Surgical History: Reports: None GI Surgical History: Reports: Cholecystectomy, Colonoscopy, Hernia, Inguinal Male Surgical History: Reports: Renal Calculus Musculoskeletal Surgical History: Reports: Hip Replacement, Knee Replacement, Other (See Below) Other Musculoskeletal Surgeries/Procedures:: venous ablation right leg January 2018; 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, neck surgery 2013 Social & Family History - Family History Family Medical History: Noncontributory - Tobacco Use Smoking Status *Q: Never Smoker - Caffeine Use Caffeine Use: Reports: Coffee - Recreational Drug Use Recreational Drug Use: No ED ROS GENERAL - Review of Systems Review Of Systems: ROS reveals no pertinent complaints other than HPI. ED EXAM, GENERAL - Physical Exam Exam: See Below Exam Limited By: No Limitations General Appearance: Alert, WD/WN, No Apparent Distress Throat/Mouth: No Airway Compromise Head: Atraumatic, Normocephalic Neck: Full Range of Motion Respiratory/Chest: No Respiratory Distress, No Accessory Muscle Use, Rhonchi Cardiovascular: Regular Rate, Rhythm GI/Abdominal: No Distention Extremities: Pedal Edema, Other (wound-vac right knee) Neurological: Alert, Normal Cognition, No Motor/Sensory Deficits Psychiatric: Normal Affect Skin Exam: Warm, Dry Course - Vital Signs Last Recorded V/S: Last Vital Signs Temp 37.1 C 03/03/18 11:15 Pulse Resp 19 03/03/18 11:15 BP 137/77 03/03/18 11:15 Pulse Ox 98 03/03/18 11:15 - Orders/Labs/Meds Orders: Active Orders 24 hr Category Date Time Status CXR [Chest 1V Frontal] [CR] Stat Exams 03/03/18 11:45 Ordered Sodium Chloride 0.9% [Saline Flush] Med 03/03/18 11:58 Active 10 ml FLUSH ASDIRECTED PRN Medication Orders Sodium Chloride (Saline Flush) 10 ml FLUSH ASDIRECTED PRN PRN Reason: Keep Vein Open Last Admin: 03/03/18 13:57 Dose: 10 ml Admin: 03/03/18 11:59 Dose: 10 ml Labs: Laboratory Tests 03/03/18 03/03/18 03/03/18 Range/Units 12:00 12:00 12:00 WBC 7.8 (4.5-12.0) X10-3/uL RBC 4.09 L (4.30-5.75) x10(6)uL Hgb 11.6 (11.5-15.5) g/dL Hct 34.9 (30.0-51.3) % MCV 85.4 (80-96) fL MCH 28.4 (27.7-33.6) pg MCHC 33.3 (32.2-35.4) g/dL RDW 16.3 H (11.5-15.5) % Plt Count 192 (125-369) X10(3)uL MPV 8.9 (7.4-10.4) fL Neut % (Auto) 62.9 (46-82) % Lymph % (Auto) 21.3 (13-37) % [place] % (Auto) 10.2 (4-12) % Eos % (Auto) 5 (1.0-5.0) % Baso % (Auto) 1 (0-2) % Neut # (Auto) 4.9 (1.6-8.3) # Lymph # (Auto) 1.7 (0.6-5.0) # [place] # (Auto) 0.8 (0.0-1.3) # Eos # (Auto) 0.4 (0.0-0.8) # Baso # (Auto) 0.0 (0.0-0.2) # PT (8.7-11.1) INR (0.89-1.13) Sodium 135 (135-145) mmol/L Potassium 3.8 (3.5-5.3) mmol/L Chloride 100 (100-110) mmol/L Carbon Dioxide 31 (21-32) mmol/L BUN 21 H (7-18) mg/dL Creatinine 1.3 (0.70-1.30) mg/dL Est Cr Clr Drug Dosing 49.65 mL/min Estimated GFR (MDRD) 52 L (>60) BUN/Creatinine Ratio 16.2 (9-20) Glucose 163 H (80-116) mg/dL Calcium 9.1 (8.6-10.2) mg/dL NT-Pro-B Natriuret Pep 3188 H* (<=450) pg/mL 03/03/18 Range/Units 12:00 WBC (4.5-12.0) X10-3/uL RBC (4.30-5.75) x10(6)uL Hgb (11.5-15.5) g/dL Hct (30.0-51.3) % MCV (80-96) fL MCH (27.7-33.6) pg MCHC (32.2-35.4) g/dL RDW (11.5-15.5) % Plt Count (125-369) X10(3)uL MPV (7.4-10.4) fL Neut % (Auto) (46-82) % Lymph % (Auto) (13-37) % [place] % (Auto) (4-12) % Eos % (Auto) (1.0-5.0) % Baso % (Auto) (0-2) % Neut # (Auto) (1.6-8.3) # Lymph # (Auto) (0.6-5.0) # [place] # (Auto) (0.0-1.3) # Eos # (Auto) (0.0-0.8) # Baso # (Auto) (0.0-0.2) # PT 13.2 H (8.7-11.1) INR 1.36 H (0.89-1.13) Sodium (135-145) mmol/L Potassium (3.5-5.3) mmol/L Chloride (100-110) mmol/L Carbon Dioxide (21-32) mmol/L BUN (7-18) mg/dL Creatinine (0.70-1.30) mg/dL Est Cr Clr Drug Dosing mL/min Estimated GFR (MDRD) (>60) BUN/Creatinine Ratio (9-20) Glucose (80-116) mg/dL Calcium (8.6-10.2) mg/dL NT-Pro-B Natriuret Pep (<=450) pg/mL Meds: Medications Generic Name Dose Route Start Last Admin Trade Name Freq PRN Reason Stop Dose Admin Sodium Chloride 10 ml 03/03/18 11:58 03/03/18 13:57 Saline Flush FLUSH 10 ml ASDIRECTED PRN Administration Keep Vein Open Discontinued Medications Generic Name Dose Route Start Last Admin Trade Name Freq PRN Reason Stop Dose Admin Furosemide 40 mg 03/03/18 11:46 03/03/18 11:59 Lasix IVPUSH 03/03/18 11:47 40 mg NOW ONE Administration Furosemide 40 mg 03/03/18 13:29 03/03/18 13:57 Lasix IVPUSH 03/03/18 13:30 40 mg NOW ONE Administration - Radiology Interpretation Free Text/Narrative:: CXR: CHF - Re-Assessments/Exams Free Text/Narrative Re-Assessment/Exam: 03/03/18 13:31 Patient had significant diuresis after Lasix 40mg IV. Case discussed with Dr. Morin, recommends an additional Lasix 40mg IV in the ED, discharge back to [place], reweigh and reassess the patient tomorrow. Departure - Departure Time of Disposition: 13:33 Disposition: DC/Tfer to SNF 03 Condition: Fair Clinical Impression: CHF exacerbation Qualifiers: Heart failure type: unspecified Qualified Code(s): I50.9 - Heart failure, unspecified - Discharge Information *PRESCRIPTION DRUG MONITORING PROGRAM REVIEWED*: No *COPY OF PRESCRIPTION DRUG MONITORING REPORT IN PATIENT CHANDU: Not Applicable Instructions: Heart Failure, [id number] Referrals: Nicholas Trejo MD [Primary Care Provider] - Forms: ED Department Discharge Additional Instructions: Continue current doses of medication. Weigh the patient tomorrow and call the primary physician for further instructions. - My Orders Last 24 Hours: My Active Orders 03/03/18 11:45 CXR [Chest 1V Frontal] [CR] Stat 03/03/18 11:58 Sodium Chloride 0.9% [Saline Flush] 10 ml FLUSH ASDIRECTED PRN - Assessment/Plan Last 24 Hours: My Active Orders 03/03/18 11:45 CXR [Chest 1V Frontal] [CR] Stat 03/03/18 11:58 Sodium Chloride 0.9% [Saline Flush] 10 ml FLUSH ASDIRECTED PRN
[2018-03-03] MEDS: Sodium Chloride 0.9% 10 ML Syringe FLUSH PRN ×2 (11:59→13:57)
[2018-03-03 14:08] VITALS: BP 120/70
== END 2018-03-03 14:43 ==
LOC: FB.ED 11:02
DX: I11.0 Hypertensive heart disease with heart failure (principal); I50.9 Heart failure, unspecified; I48.91 Unspecified atrial fibrillation; E11.9 Type 2 diabetes mellitus without complications; Z79.01 Long term (current) use of anticoagulants; Z79.899 Other long term (current) drug therapy; Z88.7 Allergy status to serum and vaccine; Z79.84 Long term (current) use of oral hypoglycemic drugs; Z96.651 Presence of right artificial knee joint
CPT/HCPCS: 36415; 80048; 83880; 85025; 85610; 96374; 99284; J1940; J7050

== ENCOUNTER 2018-08-17 13:30 | Inpatient (IN) | payer MEDICARE, BC ==
[~2018-08-17 13:30] MED LIST: Citalopram 10 MG Tab PO SCH
--- NOTE | 2018-08-17 14:04 | PCM.HP ---
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 Patient was on IV Vancomycin via PICC line after the surgery. ID following. Patient was switch to Oral Doxycycline on 06/09/2018 till current per recommendation. Patient was doing well in the long-term, till yesterday when they notice blister and discoloration of his right big toe. Patient admitted to the hospital for further evaluation. on presentation, patient is awake, alert, denies any pain in his feet. no wound discharge. vital stable. Improves with: Reports: None Worsens with: Reports: None Associated Symptoms: Reports: No Other Symptoms - Related Data Allergies/Adverse Reactions: Allergies Allergy/AdvReac Type Severity Reaction Status Date / Time Influenza Virus Vaccines Allergy Other Verified 04/10/18 01:14 Home Medications: Home Meds Multivitamins/Minerals/Lutein [Certavite SR with Lutein] 1 tab PO DAILY [History] Acetaminophen [Tylenol] 650 mg PO Q4H PRN 03/23/13 [History] Bisacodyl [Biscolax] 10 mg RECTAL Q72H PRN 03/23/13 [History] Furosemide [Lasix] 20 mg PO DAILY@1200 03/23/13 [History] Menthol [Cough Drops] 4.6 mg MM ASDIRECTED PRN 03/23/13 [History] PEG 400/Propylene Glycol [Systane Lubricant] 1 drop EYEBOTH DAILY@199903/23/13 [History] guaiFENesin [Cough Syrup] 200 mg PO Q4H PRN 03/23/13 [History] Acetaminophen [Acetaminophen Extra Strength] 1,000 mg PO BID 12/08/17 [History] Loperamide [Imodium AD] 2 mg PO ASDIRECTED 12/08/17 [History] Aspirin [Halfprin] 81 mg PO DAILY 02/27/18 [History] Betamethasone Dipropionate [Diprosone 0.05% Crm] 1 applic TOP BID PRN 02/27/18 [ History] Furosemide [Lasix] 40 mg PO DAILY@08 02/27/18 [History] Mineral Oil/Petrolatum,White [Lubricant Eye Ointment] 1 applic EYERT BEDTIME [History] glipiZIDE [Glucotrol] 2.5 mg PO DAILY 02/27/18 [History] Docosanol [Abreva 10%] 1 applic TP QID PRN 04/08/18 [History] Citalopram Hydrobromide [Celexa] 10 mg PO DAILY 04/10/18 [History] Mineral Oil/Petrolatum,White [Lubricant Eye Ointment] 1 applic EYERT BID PRN [History] Sennosides/Docusate Sodium [Senna-S] 2 tab PO BID PRN 08/17/18 [History] Warfarin [Coumadin] 4 mg PO SUTUWETHSA 08/17/18 [History] Warfarin [Coumadin] 6 mg PO MOFR 08/17/18 [History] Past Medical History HEENT History: Reports: Hard of Hearing, Impaired Vision Cardiovascular History: Reports: Afib, Blood Clots/VTE/DVT, Heart Failure, Hypertension, Other (See Below) Other Cardiovascular History: venous insufficiency, chronic peripheral; terminal makeup operator 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 Respiratory History: Reports: Sleep Apnea, Other (See Below) Other Respiratory History: hx of thromboemobism Gastrointestinal History: Reports: Cholelithiasis Genitourinary History: Reports: BPH, Neurogenic Bladder, Prostate Disorder, Renal Calculus, Urinary Incontinence, Other (See Below) Other Genitourinary History: cancer of prostate; 2000 radiation seeds in prostate 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 History: Reports: None Musculoskeletal History: Reports: RA Psychiatric History: Reports: Depression Endocrine/Metabolic History: Reports: Diabetes, Type II Hematologic History: Reports: Anemia, Anticoagulation Therapy Immunologic History: Reports: None Oncologic (Cancer) History: Reports: Other (See Below) Other Oncologic History: malig neoplasm prostate; skin cancer to face and right ear Dermatologic History: Reports: Other (See Below) Other Dermatologic History: stasis dermatitis RLE - Infectious Disease History Infectious Disease History: Reports: Chicken Pox, Influenza, Measles - Past Surgical History HEENT Surgical History: Reports: Cataract Surgery, Other (See Below) Other HEENT Surgeries/Procedures: Cataract surgery to left eye 2015 Cardiovascular Surgical History: Reports: None GI Surgical History: Reports: Cholecystectomy, Colonoscopy, Hernia, Inguinal Male Surgical History: Reports: Renal Calculus Musculoskeletal Surgical History: Reports: Hip Replacement, Knee Replacement, Other (See Below) Other Musculoskeletal Surgeries/Procedures:: venous ablation right leg January 2018; 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, neck surgery 2013 Dermatological Surgical History: Reports: Other (See Below) Social & Family History - Family History Family Medical History: Noncontributory - Caffeine Use Caffeine Use: Reports: Coffee H&P Review of Systems - Review of Systems: Review Of Systems: See Below General: Reports: No Symptoms HEENT: Reports: No Symptoms Pulmonary: Reports: No Symptoms Cardiovascular: Reports: No Symptoms, Edema (right more than left ) Gastrointestinal: Reports: No Symptoms Genitourinary: Reports: No Symptoms Skin: Reports: Change in Color, Lesions Psychiatric: Reports: No Symptoms Neurological: Reports: No Symptoms Exam - Exam Exam: See Below - Vital Signs Vital Signs: Vital sign reviewed Vital Signs - 24 hr 08/17/18 13:52 Temperature [ 37.1 C Oral] Pulse, 80 Peripheral [ Left Pulse Oximetry] Respiratory 16 Rate Blood Pressure 113/68 [Right Upper Arm] O2 Sat by Pulse 97 Oximetry - Exam General: Alert, Oriented, Cooperative HEENT: PERRLA, Conjunctiva Clear Neck: Supple Lungs: Clear to Auscultation, Normal Respiratory Effort Cardiovascular: Regular Rate, Regular Rhythm GI/Abdominal Exam: Normal Bowel Sounds, Soft, Non-Tender Extremities: Non-Tender, Pedal Edema, Slow Capillary Refill, Limited Range of Motion Skin: Warm, Dry, Wound (dry discolored eschar noticed on the tip of the right big toe ) Neurological: Sensation Intact, Abnormal Gait Neuro Extensive - Mental Status: Alert, Oriented x3, Normal Mood/Affect Neuro Extensive - Motor, Sensory, Reflexes: Abnormal Gait Psychiatric: Alert, Normal Affect, Normal Mood - Problem List (1) Cellulitis SNOMED Code(s): 768953075 ICD Code: L03.90 - CELLULITIS, UNSPECIFIED Status: Acute Current Visit: Yes (2) Hx MRSA infection SNOMED Code(s): 941156707, 862167279 ICD Code: Z86.14 - PERSONAL HISTORY OF METHICILLIN RESIS STAPH INFECTION Status: Acute Current Visit: Yes (3) CHF (congestive heart failure) SNOMED Code(s): 23955640 ICD Code: I50.9 - HEART FAILURE, UNSPECIFIED Status: Acute Current Visit : No Qualifiers: Heart failure type: unspecified Heart failure chronicity: acute on chronic Qualified Code(s): I50.9 - Heart failure, unspecified (4) terminal makeup operator current use of anticoagulant SNOMED Code(s): 433076081 ICD Code: Z79.01 - CUSTODIAL (CURRENT) USE OF ANTICOAGULANTS Status: Acute Current Visit: No Problem List Initiated/Reviewed/Updated: Yes Orders Last 24hrs: # Cellulitis of the right foot # History of infective prosthetic right knee s/p revision and washout on 04/22 # History of MRSA - Will do basic labs CBC, CMP, ESR, CRP, Blood culture and wound culture. - Will start patient on Ceftriaxone and Vancomycin. will hold his Doxycycline - wound care - notified via [employer] message. agreed to the current plan. recommend to restart his doxycycline upon discharge. # CHF # Leg swelling - continue home dose of Lasix - monitor urine output - will check renal function # Diabetes type 2 - will check his A1C - Hold home metformin. Continue home dose of Glipizide - Start insulin sliding scale # History of A.fib on Coumadin - pharmacy to dose. continue with Coumadin # HTN - continue home medication of lasix # CAD on aspirin # Depression on Celexa # DVT prophylaxis : systemic on Coumadin # Diet: diabetic diet # Dispo: inpatient <Arias Lott - Last Filed: 08/17/18 16:59> H&P History of Present Illness - General Admit Problem/Dx: Admission Diagnosis/Problem Admission Diagnosis/Problem Cellulitis Exam - Vital Signs Vital Signs: Last Vital Signs Temp 98.8 F 08/17/18 13:52 Pulse 80 08/17/18 13:52 Resp 16 08/17/18 13:52 BP 113/68 08/17/18 13:52 Pulse Ox 97 08/17/18 13:52 - Patient Data Lab Results Last 24 hrs: Laboratory Results - last 24 hr 08/17/18 08/17/18 08/17/18 Range/Units 15:15 15:15 15:15 WBC (4.5-12.0) X10-3/uL RBC (4.30-5.75) x10(6)uL Hgb (11.5-15.5) g/dL Hct (30.0-51.3) % MCV (80-96) fL MCH (27.7-33.6) pg MCHC (32.2-35.4) g/dL RDW (11.5-15.5) % Plt Count (125-369) X10(3)uL MPV (7.4-10.4) fL Neut % (Auto) (46-82) % Lymph % (Auto) (13-37) % [place] % (Auto) (4-12) % Eos % (Auto) (1.0-5.0) % Baso % (Auto) (0-2) % Neut # (Auto) (1.6-8.3) # Lymph # (Auto) (0.6-5.0) # [place] # (Auto) (0.0-1.3) # Eos # (Auto) (0.0-0.8) # Baso # (Auto) (0.0-0.2) # ESR 39 H (0-15) mm/hr PT 21.1 H (8.7-11.1) INR 2.20 H (0.89-1.13) Sodium (135-145) mmol/L Potassium (3.5-5.3) mmol/L Chloride (100-110) mmol/L Carbon Dioxide (21-32) mmol/L BUN (7-18) mg/dL Creatinine (0.70-1.30) mg/dL Est Cr Clr Drug Dosing Estimated GFR (MDRD) (>60) BUN/Creatinine Ratio (9-20) Glucose (80-116) mg/dL Hemoglobin A1c (4.5-6.2) % Calcium (8.6-10.2) mg/dL Magnesium 1.8 (1.8-2.5) mg/dL Total Bilirubin (0.1-1.3) mg/dL AST (5-25) IU/L ALT (12-36) U/L Alkaline Phosphatase (56-112) IU/L C-Reactive Protein (0.5-0.9) mg/dL Total Protein (6.0-8.0) g/dL Albumin (3.2-4.6) g/dL Globulin g/dL Albumin/Globulin Ratio 08/17/18 08/17/18 08/17/18 Range/Units 15:15 15:15 15:15 WBC 8.4 (4.5-12.0) X10-3/uL RBC 4.65 (4.30-5.75) x10(6)uL Hgb 13.4 (11.5-15.5) g/dL Hct 39.6 (30.0-51.3) % MCV 85.2 (80-96) fL MCH 28.8 (27.7-33.6) pg MCHC 33.8 (32.2-35.4) g/dL RDW 16.9 H (11.5-15.5) % Plt Count 213 (125-369) X10(3)uL MPV 8.5 (7.4-10.4) fL Neut % (Auto) 53.3 (46-82) % Lymph % (Auto) 31.4 (13-37) % [place] % (Auto) 9.1 (4-12) % Eos % (Auto) 4 (1.0-5.0) % Baso % (Auto) 2 (0-2) % Neut # (Auto) 4.4 (1.6-8.3) # Lymph # (Auto) 2.6 (0.6-5.0) # [place] # (Auto) 0.8 (0.0-1.3) # Eos # (Auto) 0.4 (0.0-0.8) # Baso # (Auto) 0.2 (0.0-0.2) # ESR (0-15) mm/hr PT (8.7-11.1) INR (0.89-1.13) Sodium (135-145) mmol/L Potassium (3.5-5.3) mmol/L Chloride (100-110) mmol/L Carbon Dioxide (21-32) mmol/L BUN (7-18) mg/dL Creatinine (0.70-1.30) mg/dL Est Cr Clr Drug Dosing Estimated GFR (MDRD) (>60) BUN/Creatinine Ratio (9-20) Glucose (80-116) mg/dL Hemoglobin A1c 6.7 H (4.5-6.2) % Calcium (8.6-10.2) mg/dL Magnesium (1.8-2.5) mg/dL Total Bilirubin (0.1-1.3) mg/dL AST (5-25) IU/L ALT (12-36) U/L Alkaline Phosphatase (56-112) IU/L C-Reactive Protein 1.8 H (0.5-0.9) mg/dL Total Protein (6.0-8.0) g/dL Albumin (3.2-4.6) g/dL Globulin g/dL Albumin/Globulin Ratio 08/17/18 Range/Units 15:15 WBC (4.5-12.0) X10-3/uL RBC (4.30-5.75) x10(6)uL Hgb (11.5-15.5) g/dL Hct (30.0-51.3) % MCV (80-96) fL MCH (27.7-33.6) pg MCHC (32.2-35.4) g/dL RDW (11.5-15.5) % Plt Count (125-369) X10(3)uL MPV (7.4-10.4) fL Neut % (Auto) (46-82) % Lymph % (Auto) (13-37) % [place] % (Auto) (4-12) % Eos % (Auto) (1.0-5.0) % Baso % (Auto) (0-2) % Neut # (Auto) (1.6-8.3) # Lymph # (Auto) (0.6-5.0) # [place] # (Auto) (0.0-1.3) # Eos # (Auto) (0.0-0.8) # Baso # (Auto) (0.0-0.2) # ESR (0-15) mm/hr PT (8.7-11.1) INR (0.89-1.13) Sodium 137 (135-145) mmol/L Potassium 4.0 (3.5-5.3) mmol/L Chloride 99 L (100-110) mmol/L Carbon Dioxide 28 (21-32) mmol/L BUN 35 H (7-18) mg/dL Creatinine 1.5 H (0.70-1.30) mg/dL Est Cr Clr Drug Dosing TNP Estimated GFR (MDRD) 44 L (>60) BUN/Creatinine Ratio 23.3 H (9-20) Glucose 135 H (80-116) mg/dL Hemoglobin A1c (4.5-6.2) % Calcium 9.4 (8.6-10.2) mg/dL Magnesium (1.8-2.5) mg/dL Total Bilirubin 0.5 (0.1-1.3) mg/dL AST 22 D (5-25) IU/L ALT 12 (12-36) U/L Alkaline Phosphatase 111 (56-112) IU/L C-Reactive Protein (0.5-0.9) mg/dL Total Protein 7.8 (6.0-8.0) g/dL Albumin 3.3 (3.2-4.6) g/dL Globulin 4.5 g/dL Albumin/Globulin Ratio 0.7 Result Diagrams: 08/17/18 15:15 08/17/18 15:15 - Problem List (1) Diabetes mellitus with foot ulcer SNOMED Code(s): 74434557 ICD Code: E11.621 - TYPE 2 DIABETES MELLITUS WITH FOOT ULCER; L97.509 - NON- PRESSURE CHRONIC ULCER OTH PRT UNSP FOOT W UNSP SEVERITY Status: Acute Current Visit: Yes (2) Cellulitis SNOMED Code(s): 061618298 ICD Code: L03.90 - CELLULITIS, UNSPECIFIED Status: Acute Current Visit: Yes (3) Hx MRSA infection SNOMED Code(s): 293226364, 682258372 ICD Code: Z86.14 - PERSONAL HISTORY OF METHICILLIN RESIS STAPH INFECTION Status: Acute Current Visit: Yes (4) terminal makeup operator current use of anticoagulant SNOMED Code(s): 315641996 ICD Code: Z79.01 - MARKETING ANALYTICS MANAGER (CURRENT) USE OF ANTICOAGULANTS Status: Acute Current Visit: No Problem List Initiated/Reviewed/Updated: Yes Orders Last 24hrs: Active Orders 24 hr Category Date Time Status Admission Status [Patient Status] [ADT] Routine ADT 08/17/18 13:39 Active Accu Check [Blood Glucose Check, Bedside] [RC] Care 08/17/18 16:14 Active QIDACANDBED Wound Care [RC] DAILY Care 08/17/18 15:52 Active CULTURE BLOOD [BC] Urgent Lab 08/17/18 15:15 Received CULTURE BLOOD [BC] Urgent Lab 08/17/18 15:22 Received CULTURE ROUTINE + SMEAR [RM] Routine Lab 08/17/18 14:59 Ordered VANCOMYCIN TROUGH [CHEM] Timed Lab 08/20/18 16:30 Ordered Acetaminophen [Tylenol Extra Strength] Med 08/17/18 21:00 Active 1,000 mg PO BID Aspirin [Halfprin] Med 08/18/18 09:00 Active 81 mg PO DAILY Betamethasone Dipropionate [Diprosone 0.05% Crm] Med 08/17/18 15:48 Active 0 gm TOP BID PRN Citalopram [Celexa] Med 08/18/18 09:00 Active 10 mg PO DAILY Furosemide [Lasix] Med 08/18/18 12:00 Active 20 mg PO DAILY@1200 Furosemide [Lasix] Med 08/18/18 08:00 Active 40 mg PO DAILY@0800 Insulin Lispro [HumaLOG] Med 08/17/18 18:00 Active See Protocol SUBCUT TIDMEALS Menthol [Cough Drops] Med 08/17/18 15:48 Active 4.6 mg MM ASDIRECTED PRN Multivitamins w-Iron/Ca/FA/Min [Thera M Plus] Med 08/18/18 09:00 Active 1 tab PO DAILY Pharmacy to Dose - Vancomycin Med 08/17/18 15:15 Pending 1 dose .XX ASDIRECTED Sodium Chloride 0.9% [Saline Flush] Med 08/17/18 16:00 Active 10 ml FLUSH ASDIRECTED PRN Vancomycin 1 gm Med 08/18/18 17:00 Active Sodium Chloride 0.9% [Normal Saline] 250 ml IV Q24H Vancomycin 500 mg Med 08/17/18 17:00 Active Vancomycin 750 mg Sodium Chloride 0.9% [Normal Saline] 250 ml IV ONETIME Warfarin [Coumadin] Med 08/18/18 16:00 Active 4 mg PO SUTUWETHSA Warfarin [Coumadin] Med 08/17/18 16:00 Active 6 mg PO MoFr@1600 cefTRIAXone [Rocephin] Med 08/17/18 15:45 Active 1 gm IVPUSH Q24H glipiZIDE [Glucotrol] Med 08/18/18 09:00 Active 2.5 mg PO DAILY guaiFENesin [Robitussin] Med 08/17/18 15:48 Active 200 mg PO Q4H PRN Blood Culture x2 Reflex Set [OM.PC] Urgent Oth 08/17/18 14:59 Ordered Medication Orders Acetaminophen (Tylenol Extra Strength) 1,000 mg PO BID [facility] Aspirin (Halfprin) 81 mg PO DAILY [facility] Betamethasone Dipropionate (Diprosone 0.05% Crm) 0 gm TOP BID PRN PRN Reason: DRY SKIN Ceftriaxone Sodium (Rocephin) 1 gm IVPUSH Q24H [facility] Last Admin: 08/17/18 16:22 Dose: 1 gm Citalopram Hydrobromide (Celexa) 10 mg PO DAILY [facility] Furosemide (Lasix) 20 mg PO DAILY@1200 [facility] Furosemide (Lasix) 40 mg PO DAILY@0800 [facility] Glipizide (Glucotrol) 2.5 mg PO DAILY [facility] Guaifenesin (Robitussin) 200 mg PO Q4H PRN PRN Reason: Cough Vancomycin HCl 500 mg/Vancomycin HCl 750 mg/ Sodium Chloride 250 mls @ 167 mls/ hr IV ONETIME ONE Stop: 08/17/18 18:29 Vancomycin HCl 1 gm/ Sodium (Chloride) 250 mls @ 250 mls/hr IV Q24H [facility] Insulin Human Lispro (Humalog) 0 unit SUBCUT TIDMEALS [facility]; Protocol Multivitamins/Minerals (Thera M Plus) 1 tab PO DAILY [facility] Non-Formulary Medication (Menthol [Cough Drops]) 4.6 mg MM ASDIRECTED PRN PRN Reason: Sore Throat Sodium Chloride (Saline Flush) 10 ml FLUSH ASDIRECTED PRN PRN Reason: Keep Vein Open Last Admin: 08/17/18 16:28 Dose: 10 ml Admin: 08/17/18 16:21 Dose: 10 ml Vancomycin HCl (Pharmacy To Dose - Vancomycin) 1 dose .XX ASDIRECTED [facility] Warfarin Sodium (Coumadin) 4 mg PO SUTUWETHSA [facility] Warfarin Sodium (Coumadin) 6 mg PO MoFr@1600 [facility] Last Admin: 08/17/18 16:40 Dose: 6 mg Assessment/Plan Comment:: I agree with assessment. I will also consult Dr Wang for looking at the ulcer.
[2018-08-17] MEDS ORDERED: cefTRIAXone 1 GM in Sodium Chloride 0.9% 50 ML IV SCH (15:15)
[2018-08-17 15:43] LABS: HEMOGLOBIN A1C 6.7 % (4.5-6.2)
[2018-08-17] MEDS ORDERED: guaiFENesin 100 MG/5 ML Soln 5 ML UD Cup PO PRN (15:48)
[2018-08-17] MEDS ORDERED: Betamethasone Dipropionate 0.05% Crm 45 GM Tube TOP PRN (15:48)
[2018-08-17] MEDS ORDERED: MENTHOL MM PRN (15:48)
[2018-08-17] MEDS ORDERED: Vancomycin 1 GM SDV IV SCH (16:00)
[2018-08-17] MEDS ORDERED: Warfarin 2 MG Tab PO SCH (16:00)
[2018-08-17] MEDS ORDERED: glipiZIDE 5 MG Tab PO SCH (16:00)
[2018-08-17] MEDS: Sodium Chloride 0.9% 10 ML Syringe FLUSH PRN ×3 (16:21→19:13)
[2018-08-17] MEDS: cefTRIAXone 1 GM Vial IVPUSH SCH (16:22)
[2018-08-17] MEDS ORDERED: Vancomycin 500 MG, Vancomycin 750 MG in Sodium Chloride 0.9% 250 ML IV ONE (17:00)
[2018-08-17] MEDS: Insulin Lispro 100 Unit/ML 3 ML KwikPen SUBCUT SCH (17:40)
[2018-08-17] MEDS: Phytonadione 100 MCG Tab PO SCH (17:41)
--- NOTE | 2018-08-17 18:16 | PCM.CONS ---
H&P History of Present Illness - General Date of Service: 08/17/18 Admit Problem/Dx: Admission Diagnosis/Problem Admission Diagnosis/Problem Cellulitis - History of Present Illness Initial Comments - Free Text/Narative: Asked to look at the pt's right great toe. supposedly developed a blister on the tip as well as a resultant cellulitis. 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 He denies any pain to the area. Does have a hx of DM. - Related Data Allergies/Adverse Reactions: Allergies Allergy/AdvReac Type Severity Reaction Status Date / Time Influenza Virus Vaccines Allergy Other Verified 04/10/18 01:14 Home Medications: Home Meds Multivitamins/Minerals/Lutein [Certavite SR with Lutein] 1 tab PO DAILY [History] Acetaminophen [Tylenol] 650 mg PO Q4H PRN 03/23/13 [History] Bisacodyl [Biscolax] 10 mg RECTAL Q72H PRN 03/23/13 [History] Furosemide [Lasix] 20 mg PO DAILY@1200 03/23/13 [History] Menthol [Cough Drops] 4.6 mg MM ASDIRECTED PRN 03/23/13 [History] PEG 400/Propylene Glycol [Systane Lubricant] 1 drop EYEBOTH DAILY@199903/23/13 [History] guaiFENesin [Cough Syrup] 200 mg PO Q4H PRN 03/23/13 [History] Acetaminophen [Acetaminophen Extra Strength] 1,000 mg PO BID 12/08/17 [History] Loperamide [Imodium AD] 2 mg PO ASDIRECTED 12/08/17 [History] Aspirin [Halfprin] 81 mg PO DAILY 02/27/18 [History] Betamethasone Dipropionate [Diprosone 0.05% Crm] 1 applic TOP BID PRN 02/27/18 [ History] Furosemide [Lasix] 40 mg PO DAILY@08 02/27/18 [History] Mineral Oil/Petrolatum,White [Lubricant Eye Ointment] 1 applic EYERT BEDTIME [History] glipiZIDE [Glucotrol] 2.5 mg PO DAILY 02/27/18 [History] Docosanol [Abreva 10%] 1 applic TP QID PRN 04/08/18 [History] Citalopram Hydrobromide [Celexa] 10 mg PO DAILY 04/10/18 [History] Mineral Oil/Petrolatum,White [Lubricant Eye Ointment] 1 applic EYERT BID PRN [History] Sennosides/Docusate Sodium [Senna-S] 2 tab PO BID PRN 08/17/18 [History] Warfarin [Coumadin] 4 mg PO SUTUWETHSA 08/17/18 [History] Warfarin [Coumadin] 6 mg PO MOFR 08/17/18 [History] Past Medical History HEENT History: Reports: Hard of Hearing, Impaired Vision Cardiovascular History: Reports: Afib, Blood Clots/VTE/DVT, Heart Failure, Hypertension, Other (See Below) Other Cardiovascular History: venous insufficiency, chronic peripheral; 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 Respiratory History: Reports: Sleep Apnea, Other (See Below) Other Respiratory History: hx of thromboemobism Gastrointestinal History: Reports: Cholelithiasis Genitourinary History: Reports: BPH, Neurogenic Bladder, Prostate Disorder, Renal Calculus, Urinary Incontinence, Other (See Below) Other Genitourinary History: cancer of prostate; 2000 radiation seeds in prostate INFORMATION ASSURANCE ENGINEER History: Reports: None Musculoskeletal History: Reports: RA Neurological History: Reports: None Psychiatric History: Reports: Depression Endocrine/Metabolic History: Reports: Diabetes, Type II Hematologic History: Reports: Anemia, Anticoagulation Therapy Immunologic History: Reports: None Oncologic (Cancer) History: Reports: Other (See Below) Other Oncologic History: malig neoplasm prostate; skin cancer to face and right ear Dermatologic History: Reports: Other (See Below) Other Dermatologic History: stasis dermatitis RLE - Infectious Disease History Infectious Disease History: Reports: Chicken Pox, Influenza, Measles - Past Surgical History HEENT Surgical History: Reports: Cataract Surgery, Other (See Below) Other HEENT Surgeries/Procedures: Cataract surgery to left eye 2015 Cardiovascular Surgical History: Reports: None GI Surgical History: Reports: Cholecystectomy, Colonoscopy, Hernia, Inguinal Male Surgical History: Reports: Renal Calculus Musculoskeletal Surgical History: Reports: Hip Replacement, Knee Replacement, Other (See Below) Other Musculoskeletal Surgeries/Procedures:: venous ablation right leg January 2018; 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, neck surgery 2013 Dermatological Surgical History: Reports: Other (See Below) Social & Family History - Family History Family Medical History: Noncontributory - Tobacco Use Smoking Status *Q: Never Smoker Second Hand Smoke Exposure: No - Caffeine Use Caffeine Use: Reports: Coffee - Recreational Drug Use Recreational Drug Use: No H&P Review of Systems - Review of Systems: Review Of Systems: See Below Skin: Reports: Wound Exam - Exam Exam: See Below - Vital Signs Vital Signs: Last Vital Signs Temp 98.8 F 08/17/18 13:52 Pulse 80 08/17/18 13:52 Resp 16 08/17/18 13:52 BP 113/68 08/17/18 13:52 Pulse Ox 97 08/17/18 13:52 Weight: 115.439 kg - Exam Peripheral Pulses: 0: Posterior Tibial (R), Dorsalis Pedis (R) Skin: Wound, Other - Patient Data Lab Results Last 24 hrs: Laboratory Results - last 24 hr 08/17/18 08/17/18 08/17/18 Range/Units 15:15 15:15 15:15 WBC (4.5-12.0) X10-3/uL RBC (4.30-5.75) x10(6)uL Hgb (11.5-15.5) g/dL Hct (30.0-51.3) % MCV (80-96) fL MCH (27.7-33.6) pg MCHC (32.2-35.4) g/dL RDW (11.5-15.5) % Plt Count (125-369) X10(3)uL MPV (7.4-10.4) fL Neut % (Auto) (46-82) % Lymph % (Auto) (13-37) % [place] % (Auto) (4-12) % Eos % (Auto) (1.0-5.0) % Baso % (Auto) (0-2) % Neut # (Auto) (1.6-8.3) # Lymph # (Auto) (0.6-5.0) # [place] # (Auto) (0.0-1.3) # Eos # (Auto) (0.0-0.8) # Baso # (Auto) (0.0-0.2) # ESR 39 H (0-15) mm/hr PT 21.1 H (8.7-11.1) INR 2.20 H (0.89-1.13) Sodium (135-145) mmol/L Potassium (3.5-5.3) mmol/L Chloride (100-110) mmol/L Carbon Dioxide (21-32) mmol/L BUN (7-18) mg/dL Creatinine (0.70-1.30) mg/dL Est Cr Clr Drug Dosing Estimated GFR (MDRD) (>60) BUN/Creatinine Ratio (9-20) Glucose (80-116) mg/dL POC Glucose (80-116) mg/dL Hemoglobin A1c (4.5-6.2) % Calcium (8.6-10.2) mg/dL Magnesium 1.8 (1.8-2.5) mg/dL Total Bilirubin (0.1-1.3) mg/dL AST (5-25) IU/L ALT (12-36) U/L Alkaline Phosphatase (56-112) IU/L C-Reactive Protein (0.5-0.9) mg/dL Total Protein (6.0-8.0) g/dL Albumin (3.2-4.6) g/dL Globulin g/dL Albumin/Globulin Ratio 08/17/18 08/17/18 08/17/18 Range/Units 15:15 15:15 15:15 WBC 8.4 (4.5-12.0) X10-3/uL RBC 4.65 (4.30-5.75) x10(6)uL Hgb 13.4 (11.5-15.5) g/dL Hct 39.6 (30.0-51.3) % MCV 85.2 (80-96) fL MCH 28.8 (27.7-33.6) pg MCHC 33.8 (32.2-35.4) g/dL RDW 16.9 H (11.5-15.5) % Plt Count 213 (125-369) X10(3)uL MPV 8.5 (7.4-10.4) fL Neut % (Auto) 53.3 (46-82) % Lymph % (Auto) 31.4 (13-37) % [place] % (Auto) 9.1 (4-12) % Eos % (Auto) 4 (1.0-5.0) % Baso % (Auto) 2 (0-2) % Neut # (Auto) 4.4 (1.6-8.3) # Lymph # (Auto) 2.6 (0.6-5.0) # [place] # (Auto) 0.8 (0.0-1.3) # Eos # (Auto) 0.4 (0.0-0.8) # Baso # (Auto) 0.2 (0.0-0.2) # ESR (0-15) mm/hr PT (8.7-11.1) INR (0.89-1.13) Sodium (135-145) mmol/L Potassium (3.5-5.3) mmol/L Chloride (100-110) mmol/L Carbon Dioxide (21-32) mmol/L BUN (7-18) mg/dL Creatinine (0.70-1.30) mg/dL Est Cr Clr Drug Dosing Estimated GFR (MDRD) (>60) BUN/Creatinine Ratio (9-20) Glucose (80-116) mg/dL POC Glucose (80-116) mg/dL Hemoglobin A1c 6.7 H (4.5-6.2) % Calcium (8.6-10.2) mg/dL Magnesium (1.8-2.5) mg/dL Total Bilirubin (0.1-1.3) mg/dL AST (5-25) IU/L ALT (12-36) U/L Alkaline Phosphatase (56-112) IU/L C-Reactive Protein 1.8 H (0.5-0.9) mg/dL Total Protein (6.0-8.0) g/dL Albumin (3.2-4.6) g/dL Globulin g/dL Albumin/Globulin Ratio 08/17/18 08/17/18 Range/Units 15:15 17:11 WBC (4.5-12.0) X10-3/uL RBC (4.30-5.75) x10(6)uL Hgb (11.5-15.5) g/dL Hct (30.0-51.3) % MCV (80-96) fL MCH (27.7-33.6) pg MCHC (32.2-35.4) g/dL RDW (11.5-15.5) % Plt Count (125-369) X10(3)uL MPV (7.4-10.4) fL Neut % (Auto) (46-82) % Lymph % (Auto) (13-37) % [place] % (Auto) (4-12) % Eos % (Auto) (1.0-5.0) % Baso % (Auto) (0-2) % Neut # (Auto) (1.6-8.3) # Lymph # (Auto) (0.6-5.0) # Benson # (Auto) (0.0-1.3) # Eos # (Auto) (0.0-0.8) # Baso # (Auto) (0.0-0.2) # ESR (0-15) mm/hr PT (8.7-11.1) INR (0.89-1.13) Sodium 137 (135-145) mmol/L Potassium 4.0 (3.5-5.3) mmol/L Chloride 99 L (100-110) mmol/L Carbon Dioxide 28 (21-32) mmol/L BUN 35 H (7-18) mg/dL Creatinine 1.5 H (0.70-1.30) mg/dL Est Cr Clr Drug Dosing TNP Estimated GFR (MDRD) 44 L (>60) BUN/Creatinine Ratio 23.3 H (9-20) Glucose 135 H (80-116) mg/dL POC Glucose 134 H (80-116) mg/dL Hemoglobin A1c (4.5-6.2) % Calcium 9.4 (8.6-10.2) mg/dL Magnesium (1.8-2.5) mg/dL Total Bilirubin 0.5 (0.1-1.3) mg/dL AST 22 D (5-25) IU/L ALT 12 (12-36) U/L Alkaline Phosphatase 111 (56-112) IU/L C-Reactive Protein (0.5-0.9) mg/dL Total Protein 7.8 (6.0-8.0) g/dL Albumin 3.3 (3.2-4.6) g/dL Globulin 4.5 g/dL Albumin/Globulin Ratio 0.7 Result Diagrams: 08/17/18 15:15 08/17/18 15:15 Consult PN Assessment/Plan Procedures: Procedures ANESTH KNEE AREA SURGERY (02/27/18) ANESTH KNEE JOINT SURGERY (04/10/18) ANTINUCLEAR ANTIBODIES (ALBERT) (02/18/14) ASSAY OF CREATININE (06/04/18) ASSAY OF FERRITIN (03/23/14) ASSAY OF LACTIC ACID (12/08/17) ASSAY OF NATRIURETIC PEPTIDE (04/08/18) ASSAY OF VANCOMYCIN (06/04/18) ASSAY THYROID STIM HORMONE (02/18/14) AUTOMATED PLATELET COUNT (03/22/13) BLOOD TRANSFUSION SERVICE (02/27/18) BLOOD TYPING SEROLOGIC ABO (02/27/18) BLOOD TYPING SEROLOGIC RH(D) (02/27/18) C-REACTIVE PROTEIN (07/15/18) CHEST X-RAY 1 VIEW FRONTAL (04/05/14) CHEST X-RAY 2VW FRONTAL&LATL (05/11/17) CINE/VID X-RAY THROAT/ESOPH (05/26/18) COMPATIBILITY TEST ANTIGLOB (02/27/18) COMPATIBILITY TEST SPIN (02/27/18) COMPLETE CBC AUTOMATED (06/06/17) COMPLETE CBC W/AUTO DIFF WBC (07/15/18) COMPREHEN METABOLIC PANEL (07/15/18) CT HEAD/BRAIN W/O DYE (03/08/14) CT NECK SPINE W/O DYE (03/11/14) CULTR BACTERIA EXCEPT BLOOD (04/10/18) CULTURE AEROBIC IDENTIFY (03/22/13) CULTURE OTHR SPECIMN AEROBIC (04/10/18) JAG MUSC/FASCIA 20 SQ CM/< (04/09/18) DRAIN/INJ JOINT/BURSA W/O US (04/09/18) ELECTROCARDIOGRAM TRACING (02/27/18) EMERGENCY DEPT VISIT (04/10/18) EMERGENCY DEPT VISIT (04/10/18) EMERGENCY DEPT VISIT (03/03/18) EMERGENCY DEPT VISIT (12/08/17) EMERGENCY DEPT VISIT (12/08/17) EMERGENCY DEPT VISIT (05/11/17) EMERGENCY DEPT VISIT (04/10/16) EXPLORATION OF KNEE JOINT (03/22/13) FIBRIN DEGRADATION QUANT (04/10/16) GLUCOSE BLOOD TEST (04/10/18) GLYCOSYLATED HEMOGLOBIN TEST (02/23/18) HEMOGLOBIN (03/18/13) HYDRATE IV INFUSION ADD-ON (02/27/18) INFLUENZA ASSAY W/OPTIC (04/08/17) INITIAL OBSERVATION CARE (04/10/18) METABOLIC PANEL TOTAL CA (04/08/18) MICROBE SUSCEPTIBLE SEEMA (12/08/17) MOTION FLUOROSCOPY/SWALLOW (05/26/18) OFFICE/OUTPATIENT VISIT EST (04/08/18) OFFICE/OUTPATIENT VISIT EST (04/08/18) OFFICE/OUTPATIENT VISIT EST (03/18/18) OFFICE/OUTPATIENT VISIT EST (04/09/17) OFFICE/OUTPATIENT VISIT EST (04/05/17) OFFICE/OUTPATIENT VISIT EST (02/14/16) POLYSOM 6/>YRS CPAP 4/> PARM (04/12/15) PROTHROMBIN TIME (08/07/18) RBC ANTIBODY SCREEN (02/27/18) RBC SED RATE NONAUTOMATED (07/15/18) RENAL FUNCTION PANEL (02/18/14) REPAIR OF LEG TENDON EACH (03/22/13) TRISTEN NONANTIBODY (02/23/14) ROUTINE VENIPUNCTURE (08/07/18) SMEAR GRAM STAIN (04/10/18) THER/PROPH/DIAG INJ IV PUSH (03/03/18) THER/PROPH/DIAG IV INF ADDON (02/27/18) THER/PROPH/DIAG IV INF INIT (02/27/18) TX/PRO/DX INJ NEW DRUG ADDON (02/27/18) TX/PRO/DX INJ SAME DRUG EXPERIMENTAL WELDER (02/27/18) TX/PROPH/DG ADDL SEQ IV INF (02/27/18) URINALYSIS AUTO W/SCOPE (12/08/17) URINE BACTERIA CULTURE (12/08/17) URINE CULTURE/COLONY COUNT (12/08/17) US GUIDE VASCULAR ACCESS (04/10/18) VIT D 1 25-DIHYDROXY (02/18/14) VITAL CAPACITY TEST (02/27/18) VITAMIN B-12 (02/18/14) X-RAY EXAM CHEST 1 VIEW (12/08/17) X-RAY EXAM CHEST 2 VIEWS (12/08/17) X-RAY EXAM OF KNEE 1 OR 2 (02/27/18) X-RAY EXAM OF KNEE 3 (01/22/16) (1) Diabetes mellitus with foot ulcer SNOMED Code(s): 07694604 Code(s): E11.621 - TYPE 2 DIABETES MELLITUS WITH FOOT ULCER; L97.509 - NON- PRESSURE CHRONIC ULCER OTH PRT UNSP FOOT W UNSP SEVERITY Current Visit: Yes Qualifiers: Diabetes mellitus senior living insulin use: without senior living use Assessment:: very superficial and is not full thickness Problem List Initiated/Reviewed/Updated: Yes Plan: Dressing changes. also NEEDS to have his covers off loaded from the tips of his toes.
[2018-08-17] MEDS: Acetaminophen 500 MG Tab PO SCH (20:38)
[2018-08-18] MEDS: glipiZIDE 5 MG Tab PO SCH (08:41)
[2018-08-18] MEDS: Acetaminophen 500 MG Tab PO SCH ×2 (08:41→20:07)
[2018-08-18] MEDS: Furosemide 40 MG Tab PO SCH (08:41)
[2018-08-18] MEDS: Multivitamins with Iron/Calcium/Folic Acid/Minerals Tab PO SCH (08:42)
[2018-08-18] MEDS: Citalopram 10 MG Tab PO SCH (08:42)
[2018-08-18] MEDS: Insulin Lispro 100 Unit/ML 3 ML KwikPen SUBCUT SCH ×3 (08:47→17:34)
--- NOTE | 2018-08-18 08:48 | PCM.PN ---
- General Info Date of Service: 08/18/18 Subjective Update: Patient is feeling good today. He denies any complain. No overnight event. vital stable. - Review of Systems General: Reports: Weakness HEENT: Reports: No Symptoms Pulmonary: Reports: No Symptoms Cardiovascular: Reports: No Symptoms, Edema Gastrointestinal: Reports: No Symptoms Genitourinary: Reports: No Symptoms Musculoskeletal: Reports: Joint Swelling (right foot swelling, improving ) Skin: Reports: Other (wound on the tip of the right toes - improving ) Neurological: Reports: No Symptoms Psychiatric: Reports: No Symptoms - Patient Data Vitals - Most Recent: Last Vital Signs Temp 36.7 C 08/18/18 00:20 Pulse 70 08/18/18 00:20 Resp 20 08/18/18 00:20 BP 121/76 08/18/18 00:20 Pulse Ox 95 08/18/18 00:20 Weight - Most Recent: 115.439 kg Lab Results Last 24 Hours: Laboratory Results - last 24 hr 08/17/18 08/17/18 08/17/18 Range/Units 15:15 15:15 15:15 WBC (4.5-12.0) X10-3/uL RBC (4.30-5.75) x10(6)uL Hgb (11.5-15.5) g/dL Hct (30.0-51.3) % MCV (80-96) fL MCH (27.7-33.6) pg MCHC (32.2-35.4) g/dL RDW (11.5-15.5) % Plt Count (125-369) X10(3)uL MPV (7.4-10.4) fL Neut % (Auto) (46-82) % Lymph % (Auto) (13-37) % [place] % (Auto) (4-12) % Eos % (Auto) (1.0-5.0) % Baso % (Auto) (0-2) % Neut # (Auto) (1.6-8.3) # Lymph # (Auto) (0.6-5.0) # [place] # (Auto) (0.0-1.3) # Eos # (Auto) (0.0-0.8) # Baso # (Auto) (0.0-0.2) # ESR 39 H (0-15) mm/hr PT 21.1 H (8.7-11.1) INR 2.20 H (0.89-1.13) Sodium (135-145) mmol/L Potassium (3.5-5.3) mmol/L Chloride (100-110) mmol/L Carbon Dioxide (21-32) mmol/L BUN (7-18) mg/dL Creatinine (0.70-1.30) mg/dL Est Cr Clr Drug Dosing Estimated GFR (MDRD) (>60) BUN/Creatinine Ratio (9-20) Glucose (80-116) mg/dL POC Glucose (80-116) mg/dL Hemoglobin A1c (4.5-6.2) % Calcium (8.6-10.2) mg/dL Magnesium 1.8 (1.8-2.5) mg/dL Total Bilirubin (0.1-1.3) mg/dL AST (5-25) IU/L ALT (12-36) U/L Alkaline Phosphatase (56-112) IU/L C-Reactive Protein (0.5-0.9) mg/dL Total Protein (6.0-8.0) g/dL Albumin (3.2-4.6) g/dL Globulin g/dL Albumin/Globulin Ratio 08/17/18 08/17/18 08/17/18 Range/Units 15:15 15:15 15:15 WBC 8.4 (4.5-12.0) X10-3/uL RBC 4.65 (4.30-5.75) x10(6)uL Hgb 13.4 (11.5-15.5) g/dL Hct 39.6 (30.0-51.3) % MCV 85.2 (80-96) fL MCH 28.8 (27.7-33.6) pg MCHC 33.8 (32.2-35.4) g/dL RDW 16.9 H (11.5-15.5) % Plt Count 213 (125-369) X10(3)uL MPV 8.5 (7.4-10.4) fL Neut % (Auto) 53.3 (46-82) % Lymph % (Auto) 31.4 (13-37) % [place] % (Auto) 9.1 (4-12) % Eos % (Auto) 4 (1.0-5.0) % Baso % (Auto) 2 (0-2) % Neut # (Auto) 4.4 (1.6-8.3) # Lymph # (Auto) 2.6 (0.6-5.0) # [place] # (Auto) 0.8 (0.0-1.3) # Eos # (Auto) 0.4 (0.0-0.8) # Baso # (Auto) 0.2 (0.0-0.2) # ESR (0-15) mm/hr PT (8.7-11.1) INR (0.89-1.13) Sodium (135-145) mmol/L Potassium (3.5-5.3) mmol/L Chloride (100-110) mmol/L Carbon Dioxide (21-32) mmol/L BUN (7-18) mg/dL Creatinine (0.70-1.30) mg/dL Est Cr Clr Drug Dosing Estimated GFR (MDRD) (>60) BUN/Creatinine Ratio (9-20) Glucose (80-116) mg/dL POC Glucose (80-116) mg/dL Hemoglobin A1c 6.7 H (4.5-6.2) % Calcium (8.6-10.2) mg/dL Magnesium (1.8-2.5) mg/dL Total Bilirubin (0.1-1.3) mg/dL AST (5-25) IU/L ALT (12-36) U/L Alkaline Phosphatase (56-112) IU/L C-Reactive Protein 1.8 H (0.5-0.9) mg/dL Total Protein (6.0-8.0) g/dL Albumin (3.2-4.6) g/dL Globulin g/dL Albumin/Globulin Ratio 08/17/18 08/17/18 08/17/18 Range/Units 15:15 17:11 20:09 WBC (4.5-12.0) X10-3/uL RBC (4.30-5.75) x10(6)uL Hgb (11.5-15.5) g/dL Hct (30.0-51.3) % MCV (80-96) fL MCH (27.7-33.6) pg MCHC (32.2-35.4) g/dL RDW (11.5-15.5) % Plt Count (125-369) X10(3)uL MPV (7.4-10.4) fL Neut % (Auto) (46-82) % Lymph % (Auto) (13-37) % [place] % (Auto) (4-12) % Eos % (Auto) (1.0-5.0) % Baso % (Auto) (0-2) % Neut # (Auto) (1.6-8.3) # Lymph # (Auto) (0.6-5.0) # [place] # (Auto) (0.0-1.3) # Eos # (Auto) (0.0-0.8) # Baso # (Auto) (0.0-0.2) # ESR (0-15) mm/hr PT (8.7-11.1) INR (0.89-1.13) Sodium 137 (135-145) mmol/L Potassium 4.0 (3.5-5.3) mmol/L Chloride 99 L (100-110) mmol/L Carbon Dioxide 28 (21-32) mmol/L BUN 35 H (7-18) mg/dL Creatinine 1.5 H (0.70-1.30) mg/dL Est Cr Clr Drug Dosing TNP Estimated GFR (MDRD) 44 L (>60) BUN/Creatinine Ratio 23.3 H (9-20) Glucose 135 H (80-116) mg/dL POC Glucose 134 H 213 H (80-116) mg/dL Hemoglobin A1c (4.5-6.2) % Calcium 9.4 (8.6-10.2) mg/dL Magnesium (1.8-2.5) mg/dL Total Bilirubin 0.5 (0.1-1.3) mg/dL AST 22 D (5-25) IU/L ALT 12 (12-36) U/L Alkaline Phosphatase 111 (56-112) IU/L C-Reactive Protein (0.5-0.9) mg/dL Total Protein 7.8 (6.0-8.0) g/dL Albumin 3.3 (3.2-4.6) g/dL Globulin 4.5 g/dL Albumin/Globulin Ratio 0.7 08/18/18 08/18/18 Range/Units 06:30 06:30 WBC 7.3 (4.5-12.0) X10-3/uL RBC 4.33 (4.30-5.75) x10(6)uL Hgb 11.8 (11.5-15.5) g/dL Hct 37.3 (30.0-51.3) % MCV 86.2 (80-96) fL MCH 27.2 L (27.7-33.6) pg MCHC 31.6 L (32.2-35.4) g/dL RDW 16.9 H (11.5-15.5) % Plt Count 164 (125-369) X10(3)uL MPV 9.1 (7.4-10.4) fL Neut % (Auto) 46.9 (46-82) % Lymph % (Auto) 36.0 (13-37) % [place] % (Auto) 10.1 (4-12) % Eos % (Auto) 5 (1.0-5.0) % Baso % (Auto) 2 (0-2) % Neut # (Auto) 3.4 (1.6-8.3) # Lymph # (Auto) 2.6 (0.6-5.0) # [place] # (Auto) 0.7 (0.0-1.3) # Eos # (Auto) 0.4 (0.0-0.8) # Baso # (Auto) 0.2 (0.0-0.2) # ESR (0-15) mm/hr PT (8.7-11.1) INR (0.89-1.13) Sodium 138 (135-145) mmol/L Potassium 3.8 (3.5-5.3) mmol/L Chloride 101 (100-110) mmol/L Carbon Dioxide 27 (21-32) mmol/L BUN 31 H (7-18) mg/dL Creatinine 1.5 H (0.70-1.30) mg/dL Est Cr Clr Drug Dosing 43.03 Estimated GFR (MDRD) 44 L (>60) BUN/Creatinine Ratio 20.7 H (9-20) Glucose 146 H (80-116) mg/dL POC Glucose (80-116) mg/dL Hemoglobin A1c (4.5-6.2) % Calcium 9.0 (8.6-10.2) mg/dL Magnesium (1.8-2.5) mg/dL Total Bilirubin (0.1-1.3) mg/dL AST (5-25) IU/L ALT (12-36) U/L Alkaline Phosphatase (56-112) IU/L C-Reactive Protein (0.5-0.9) mg/dL Total Protein (6.0-8.0) g/dL Albumin (3.2-4.6) g/dL Globulin g/dL Albumin/Globulin Ratio Med Orders - Current: Current Medications Acetaminophen (Tylenol Extra Strength) 1,000 mg PO BID [facility] Last Admin: 08/18/18 08:41 Dose: 1,000 mg Aspirin (Halfprin) 81 mg PO DAILY [facility] Betamethasone Dipropionate (Diprosone 0.05% Crm) 0 gm TOP BID PRN PRN Reason: DRY SKIN Ceftriaxone Sodium (Rocephin) 1 gm IVPUSH Q24H [facility] Last Admin: 08/17/18 16:22 Dose: 1 gm Citalopram Hydrobromide (Celexa) 10 mg PO DAILY [facility] Last Admin: 08/18/18 08:42 Dose: 10 mg Furosemide (Lasix) 20 mg PO DAILY@1200 [facility] Furosemide (Lasix) 40 mg PO DAILY@0800 [facility] Last Admin: 08/18/18 08:41 Dose: 40 mg Glipizide (Glucotrol) 2.5 mg PO DAILY [facility] Last Admin: 08/18/18 08:41 Dose: 2.5 mg Guaifenesin (Robitussin) 200 mg PO Q4H PRN PRN Reason: Cough Vancomycin HCl 1 gm/ Sodium (Chloride) 250 mls @ 250 mls/hr IV Q24H [facility] Insulin Human Lispro (Humalog) 0 unit SUBCUT TIDMEALS [facility]; Protocol Last Admin: 08/17/18 17:40 Dose: Not Given Multivitamins/Minerals (Thera M Plus) 1 tab PO DAILY [facility] Last Admin: 08/18/18 08:42 Dose: 1 tab Non-Formulary Medication (Menthol [Cough Drops]) 4.6 mg MM ASDIRECTED PRN PRN Reason: Sore Throat Phytonadione (Vitamin K) 200 mcg PO DAILY@1600 [facility] Last Admin: 08/17/18 17:41 Dose: 200 mcg Sodium Chloride (Saline Flush) 10 ml FLUSH ASDIRECTED PRN PRN Reason: Keep Vein Open Last Admin: 08/17/18 19:13 Dose: 10 ml Vancomycin HCl (Pharmacy To Dose - Vancomycin) 1 dose .XX ASDIRECTED [facility] Warfarin Sodium (Coumadin) 4 mg PO SUTUWETHSA [facility] Warfarin Sodium (Coumadin) 6 mg PO MoFr@1600 [facility] Last Admin: 08/17/18 16:40 Dose: 6 mg Discontinued Medications Vancomycin HCl 500 mg/Vancomycin HCl 750 mg/ Sodium Chloride 250 mls @ 167 mls/ hr IV ONETIME ONE Stop: 08/17/18 18:29 Last Admin: 08/17/18 17:31 Dose: 167 mls/hr - Exam General: Alert, Oriented HEENT: Pupils Equal Neck: Supple Lungs: Clear to Auscultation, Normal Respiratory Effort Cardiovascular: Regular Rate, Regular Rhythm GI/Abdominal Exam: Normal Bowel Sounds, Soft, Non-Tender Extremities: Pedal Edema, Limited Range of Motion, Redness - Problem List & Annotations (1) Cellulitis SNOMED Code(s): 496405637 Code(s): L03.90 - CELLULITIS, UNSPECIFIED Status: Acute Current Visit: Yes (2) Hx MRSA infection SNOMED Code(s): 879252196, 219934414 Code(s): Z86.14 - PERSONAL HISTORY OF METHICILLIN RESIS STAPH INFECTION Status: Acute Current Visit: Yes (3) CHF (congestive heart failure) SNOMED Code(s): 70408035 Code(s): I50.9 - HEART FAILURE, UNSPECIFIED Status: Acute Current Visit: No Qualifiers: Heart failure type: unspecified Heart failure chronicity: acute on chronic Qualified Code(s): I50.9 - Heart failure, unspecified (4) continuous churn buttermaker current use of anticoagulant SNOMED Code(s): 919887523 Code(s): Z79.01 - [facility] (CURRENT) USE OF ANTICOAGULANTS Status: Acute Current Visit: No - Problem List Review Problem List Initiated/Reviewed/Updated: Yes - My Orders Last 24 Hours: My Active Orders 08/17/18 14:59 CULTURE ROUTINE + SMEAR [RM] Routine Blood Culture x2 Reflex Set [OM.PC] Urgent 08/17/18 15:15 CULTURE BLOOD [BC] Urgent Pharmacy to Dose - Vancomycin 1 dose .XX ASDIRECTED 08/17/18 15:22 CULTURE BLOOD [BC] Urgent 08/17/18 15:45 cefTRIAXone [Rocephin] 1 gm IVPUSH Q24H 08/17/18 15:48 Betamethasone Dipropionate [Diprosone 0.05% Crm] 0 gm TOP BID PRN Menthol [Cough Drops] 4.6 mg MM ASDIRECTED PRN guaiFENesin [Robitussin] 200 mg PO Q4H PRN 08/17/18 15:52 Wound Care [RC] QSHIFT 08/17/18 16:00 Warfarin [Coumadin] 6 mg PO MoFr@1600 08/17/18 18:00 Insulin Lispro [HumaLOG] See Protocol SUBCUT TIDMEALS 08/17/18 21:00 Acetaminophen [Tylenol Extra Strength] 1,000 mg PO BID 08/18/18 08:00 Furosemide [Lasix] 40 mg PO DAILY@0800 08/18/18 09:00 Aspirin [Halfprin] 81 mg PO DAILY Citalopram [Celexa] 10 mg PO DAILY Multivitamins w-Iron/Ca/FA/Min [Thera M Plus] 1 tab PO DAILY glipiZIDE [Glucotrol] 2.5 mg PO DAILY 08/18/18 12:00 Furosemide [Lasix] 20 mg PO DAILY@1200 08/18/18 16:00 Warfarin [Coumadin] 4 mg PO SUTUWETHSA 08/18/18 17:00 Vancomycin 1 gm Sodium Chloride 0.9% [Normal Saline] 250 ml IV Q24H - Plan Plan:: # Cellulitis of the right foot - improving will continue same treatment with vancomycin and ceftriaxone for another day. pending blood/wound culture. continue with wound care. # other chronic medical problems will continue with home medications without any changes. .
[2018-08-18] MEDS ORDERED: Warfarin Sliding Scale PO SCH (09:45)
[2018-08-18] MEDS ORDERED: Honey 44 ML Gel TP SCH ×2 (10:00→10:33)
[2018-08-18] MEDS: Aspirin 81 MG Tab.EC PO SCH (10:28)
[2018-08-18] MEDS: Furosemide 20 MG Tab PO SCH (12:21)
[2018-08-18] MEDS ORDERED: Warfarin 4 MG Tab PO SCH (16:00)
[2018-08-18] MEDS: Sodium Chloride 0.9% 10 ML Syringe FLUSH PRN (17:27)
[2018-08-18] MEDS: cefTRIAXone 1 GM Vial IVPUSH SCH (17:28)
[2018-08-18] MEDS: Phytonadione 100 MCG Tab PO SCH (17:31)
--- NOTE | 2018-08-19 08:16 | PCM.SN ---
- Free Text/Narrative Note: Dressing change performed. still with some erythema the toe itself has some early eschar. MediHoney reapplied. redressed no changes recommended at this time.
[2018-08-19] MEDS: Insulin Lispro 100 Unit/ML 3 ML KwikPen SUBCUT SCH ×2 (08:20→11:19)
[2018-08-19] MEDS: Citalopram 10 MG Tab PO SCH (08:24)
[2018-08-19] MEDS: glipiZIDE 5 MG Tab PO SCH (08:24)
[2018-08-19] MEDS: Furosemide 40 MG Tab PO SCH (08:24)
[2018-08-19] MEDS: Multivitamins with Iron/Calcium/Folic Acid/Minerals Tab PO SCH (08:25)
[2018-08-19] MEDS: Aspirin 81 MG Tab.EC PO SCH (08:25)
[2018-08-19] MEDS: Acetaminophen 500 MG Tab PO SCH (08:25)
[2018-08-19] MEDS ORDERED: Honey 44 ML Gel TP SCH (09:00)
[2018-08-19 09:23] VITALS: BP 103/63
--- NOTE | 2018-08-19 09:28 | PCM.PN ---
- General Info Date of Service: 08/19/18 Admission Dx/Problem (Free Text): Patient is feeling well today. no overnight events. vital stable. tolerating diet well. no complain of pain anywhere. he is ready to go home. - Review of Systems General: Reports: No Symptoms HEENT: Reports: No Symptoms Pulmonary: Reports: No Symptoms Cardiovascular: Reports: No Symptoms Gastrointestinal: Reports: No Symptoms Musculoskeletal: Reports: Other (Right foot swelling- improving ) Skin: Reports: Other (Right toes wounds improving ) Neurological: Reports: No Symptoms Psychiatric: Reports: No Symptoms - Patient Data Vitals - Most Recent: Last Vital Signs Temp 36.4 C 08/19/18 08:00 Pulse 69 08/19/18 08:00 Resp 16 08/19/18 08:00 BP 103/63 08/19/18 08:00 Pulse Ox 98 08/19/18 08:00 Weight - Most Recent: 115.439 kg I&O - Last 24 Hours: Intake & Output 08/18/18 08/19/18 08/19/18 22:59 06:59 14:59 Intake Total 250 Balance 250 Lab Results Last 24 Hours: Laboratory Results - last 24 hr 08/18/18 08/18/18 08/18/18 Range/Units 06:30 11:03 16:58 PT 22.1 H (8.7-11.1) INR 2.30 H (0.89-1.13) POC Glucose 225 H 123 H D (80-116) mg/dL 08/18/18 08/19/18 08/19/18 Range/Units 21:13 06:16 06:16 PT 23.7 H (8.7-11.1) INR 2.46 H (0.89-1.13) POC Glucose 269 H D 154 H D (80-116) mg/dL Bryce Results Last 24 Hours: Microbiology 08/17/18 15:22 Aerobic Blood Culture - Preliminary Blood - Venous - Lab Draw NO GROWTH AFTER 1 DAY Anaerobic Blood Culture - Preliminary NO GROWTH AFTER 1 DAY 08/17/18 15:15 Aerobic Blood Culture - Preliminary Blood - Venous NO GROWTH AFTER 1 DAY Anaerobic Blood Culture - Preliminary NO GROWTH AFTER 1 DAY Med Orders - Current: Current Medications Acetaminophen (Tylenol Extra Strength) 1,000 mg PO BID [facility] Last Admin: 08/19/18 08:25 Dose: 1,000 mg Aspirin (Halfprin) 81 mg PO DAILY [facility] Last Admin: 08/19/18 08:25 Dose: 81 mg Betamethasone Dipropionate (Diprosone 0.05% Crm) 0 gm TOP BID PRN PRN Reason: DRY SKIN Ceftriaxone Sodium (Rocephin) 1 gm IVPUSH Q24H [facility] Last Admin: 08/18/18 17:28 Dose: 1 gm Citalopram Hydrobromide (Celexa) 10 mg PO DAILY [facility] Last Admin: 08/19/18 08:24 Dose: 10 mg Furosemide (Lasix) 20 mg PO DAILY@1200 [facility] Last Admin: 08/18/18 12:21 Dose: 20 mg Furosemide (Lasix) 40 mg PO DAILY@0800 [facility] Last Admin: 08/19/18 08:24 Dose: 40 mg Glipizide (Glucotrol) 2.5 mg PO DAILY [facility] Last Admin: 08/19/18 08:24 Dose: 2.5 mg Guaifenesin (Robitussin) 200 mg PO Q4H PRN PRN Reason: Cough Vancomycin HCl 1 gm/ Sodium (Chloride) 250 mls @ 250 mls/hr IV Q24H [facility] Last Admin: 08/18/18 17:42 Dose: 250 mls/hr Insulin Human Lispro (Humalog) 0 unit SUBCUT TIDMEALS [facility]; Protocol Last Admin: 08/19/18 08:20 Dose: 1 unit Miscellaneous Medication (Medihoney) 2 ml TP DAILY [facility] Last Admin: 08/19/18 09:18 Dose: Not Given Multivitamins/Minerals (Thera M Plus) 1 tab PO DAILY [facility] Last Admin: 08/19/18 08:25 Dose: 1 tab Non-Formulary Medication (Menthol [Cough Drops]) 4.6 mg MM ASDIRECTED PRN PRN Reason: Sore Throat Phytonadione (Vitamin K) 200 mcg PO DAILY@1600 [facility] Last Admin: 08/18/18 17:31 Dose: 200 mcg Sodium Chloride (Saline Flush) 10 ml FLUSH ASDIRECTED PRN PRN Reason: Keep Vein Open Last Admin: 08/18/18 17:27 Dose: 10 ml Vancomycin HCl (Pharmacy To Dose - Vancomycin) 1 dose .XX ASDIRECTED [facility] Warfarin Sodium (Coumadin) 4 mg PO SUTUWETHSA [facility] Last Admin: 08/18/18 17:31 Dose: 4 mg Warfarin Sodium (Coumadin) 6 mg PO MoFr@1600 [facility] Last Admin: 08/17/18 16:40 Dose: 6 mg Warfarin Sodium (Coumadin Sliding Scale) 1 each PO ASDIRECTED [facility] Discontinued Medications Vancomycin HCl 500 mg/Vancomycin HCl 750 mg/ Sodium Chloride 250 mls @ 167 mls/ hr IV ONETIME ONE Stop: 08/17/18 18:29 Last Admin: 08/17/18 17:31 Dose: 167 mls/hr Miscellaneous Medication (Medihoney) 2 ml TP DAILY [facility] Last Admin: 08/18/18 10:28 Dose: 2 ml Miscellaneous Medication (Medihoney) 2 ml TP DAILY [facility] - Exam General: Alert, Oriented HEENT: Pupils Equal Neck: Supple Lungs: Clear to Auscultation, Normal Respiratory Effort Cardiovascular: Regular Rate, Regular Rhythm GI/Abdominal Exam: Normal Bowel Sounds, Soft, Non-Tender Extremities: Pedal Edema, Joint Swelling, Limited Range of Motion Skin: Other (right toes wounds improving ) Neurological: No New Focal Deficit Psy/Mental Status: Alert, Normal Affect - Problem List & Annotations (1) Cellulitis SNOMED Code(s): 737937081 Code(s): L03.90 - CELLULITIS, UNSPECIFIED Status: Acute Current Visit: Yes (2) Hx MRSA infection SNOMED Code(s): 764996528, 630808619 Code(s): Z86.14 - PERSONAL HISTORY OF METHICILLIN RESIS STAPH INFECTION Status: Acute Current Visit: Yes (3) CHF (congestive heart failure) SNOMED Code(s): 48283813 Code(s): I50.9 - HEART FAILURE, UNSPECIFIED Status: Acute Current Visit: No Qualifiers: Heart failure type: unspecified Heart failure chronicity: acute on chronic Qualified Code(s): I50.9 - Heart failure, unspecified (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 SNOMED Code(s): 020414429 Code(s): Z79.01 - SHELTER (CURRENT) USE OF ANTICOAGULANTS Status: Acute Current Visit: No - Problem List Review Problem List Initiated/Reviewed/Updated: Yes - My Orders Last 24 Hours: My Active Orders 08/18/18 09:00 Aspirin [Halfprin] 81 mg PO DAILY Citalopram [Celexa] 10 mg PO DAILY Multivitamins w-Iron/Ca/FA/Min [Thera M Plus] 1 tab PO DAILY glipiZIDE [Glucotrol] 2.5 mg PO DAILY 08/18/18 12:00 Furosemide [Lasix] 20 mg PO DAILY@1200 08/18/18 16:00 Warfarin [Coumadin] 4 mg PO SUTUWETHSA 08/18/18 17:00 Vancomycin 1 gm Sodium Chloride 0.9% [Normal Saline] 250 ml IV Q24H 08/18/18 Lunch Consistent Carbohydrate Diet [DIET] - Plan Plan:: # Cellulitis of the right foot - improving - Blood culture showed no growth yet. will discontinue vancomycin and ceftriaxone. will discharge him on Doxycycline same dose as prior continue with wound care. # other chronic medical problems will continue with home medications without any changes. .
[2018-08-19] MEDS: Furosemide 20 MG Tab PO SCH (11:18)
--- NOTE | 2018-08-20 07:57 | PCM.DCSUM1 ---
Discharge Summary - Hospital Course HPI Initial Comments: Foot ulcer/and suspicion for cellulitis Diagnosis: Stroke: No - Discharge Data Discharge Date: 08/19/18 Discharge Disposition: DC/Tfer to SNF 03 Condition: Good - Discharge Diagnosis/Problem(s) (1) Diabetes mellitus with foot ulcer SNOMED Code(s): 40027574 ICD Code: E11.621 - TYPE 2 DIABETES MELLITUS WITH FOOT ULCER; L97.509 - NON- PRESSURE CHRONIC ULCER OTH PRT UNSP FOOT W UNSP SEVERITY Status: Acute Qualifiers: Diabetes mellitus group home insulin use: without group home use (2) Cellulitis SNOMED Code(s): 278760105 ICD Code: L03.90 - CELLULITIS, UNSPECIFIED Status: Acute (3) Hx MRSA infection SNOMED Code(s): 145335930, 673578521 ICD Code: Z86.14 - PERSONAL HISTORY OF METHICILLIN RESIS STAPH INFECTION Status: Acute (4) skilled nursing current use of anticoagulant SNOMED Code(s): 044504008 ICD Code: Z79.01 - CARE HOME (CURRENT) USE OF ANTICOAGULANTS Status: Acute - Patient Summary/Data Consults: Consultations 08/17/18 17:01 Consult to Physician [CONS] Routine Consulting Provider: Eddie Wang Call Completed to Consulting Physician: Yes - Discharge Plan Home Medications: Home Meds Multivitamins/Minerals/Lutein [Certavite SR with Lutein] 1 tab PO DAILY [History] Acetaminophen [Tylenol] 650 mg PO Q4H PRN 03/23/13 [History] Bisacodyl [Biscolax] 10 mg RECTAL Q72H PRN 03/23/13 [History] Furosemide [Lasix] 20 mg PO DAILY@119903/23/13 [History] Menthol [Cough Drops] 4.6 mg MM ASDIRECTED PRN 03/23/13 [History] PEG 400/Propylene Glycol [Systane Lubricant] 1 drop EYEBOTH DAILY@199903/23/13 [History] guaiFENesin [Cough Syrup] 200 mg PO Q4H PRN 03/23/13 [History] Acetaminophen [Acetaminophen Extra Strength] 1,000 mg PO BID 12/08/17 [History] Loperamide [Imodium AD] 2 mg PO ASDIRECTED 12/08/17 [History] Aspirin [Halfprin] 81 mg PO DAILY 02/27/18 [History] Betamethasone Dipropionate [Diprosone 0.05% Crm] 1 applic TOP BID PRN 02/27/18 [ History] Furosemide [Lasix] 40 mg PO DAILY@08 02/27/18 [History] Mineral Oil/Petrolatum,White [Lubricant Eye Ointment] 1 applic EYERT BEDTIME [History] glipiZIDE [Glucotrol] 2.5 mg PO DAILY 02/27/18 [History] Docosanol [Abreva 10%] 1 applic TP QID PRN 04/08/18 [History] Citalopram Hydrobromide [Celexa] 10 mg PO DAILY 04/10/18 [History] Mineral Oil/Petrolatum,White [Lubricant Eye Ointment] 1 applic EYERT BID PRN [History] Sennosides/Docusate Sodium [Senna-S] 2 tab PO BID PRN 08/17/18 [History] Warfarin [Coumadin] 4 mg PO SUTUWETHSA 08/17/18 [History] Warfarin [Coumadin] 6 mg PO MOFR 08/17/18 [History] - Discharge Summary/Plan Comment DC Time >30 min.: Yes - General Info Date of Service: 08/19/18 Admission Dx/Problem (Free Text: Patient is feeling well today. no overnight events. vital stable. tolerating diet well. no complain of pain anywhere. he is ready to go home. Subjective Update: Patient is feeling good today. He denies any complain. No overnight event. vital stable. Functional Status: Reports: Pain Controlled - Review of Systems General: Reports: No Symptoms HEENT: Reports: No Symptoms - Patient Data Vitals - Most Recent: Last Vital Signs Temp 97.5 F 08/19/18 08:00 Pulse 69 08/19/18 08:00 Resp 16 08/19/18 08:00 BP 103/63 08/19/18 08:00 Pulse Ox 98 08/19/18 08:00 Weight - Most Recent: 115.439 kg Lab Results - Last 24 hrs: Laboratory Results - last 24 hr 08/19/18 Range/Units 11:14 POC Glucose 156 H (80-116) mg/dL [facility] Results - Last 24 hrs: Microbiology 08/17/18 15:15 Aerobic Blood Culture - Preliminary Blood - Venous NO GROWTH AFTER 2 DAYS Anaerobic Blood Culture - Preliminary NO GROWTH AFTER 2 DAYS 08/17/18 15:22 Aerobic Blood Culture - Preliminary Blood - Venous - Lab Draw NO GROWTH AFTER 2 DAYS Anaerobic Blood Culture - Preliminary NO GROWTH AFTER 2 DAYS Med Orders - Current: Current Medications Discontinued Medications Acetaminophen (Tylenol Extra Strength) 1,000 mg PO BID [facility] Last Admin: 08/19/18 08:25 Dose: 1,000 mg Aspirin (Halfprin) 81 mg PO DAILY [facility] Last Admin: 08/19/18 08:25 Dose: 81 mg Betamethasone Dipropionate (Diprosone 0.05% Crm) 0 gm TOP BID PRN PRN Reason: DRY SKIN Ceftriaxone Sodium (Rocephin) 1 gm IVPUSH Q24H [facility] Last Admin: 08/18/18 17:28 Dose: 1 gm Citalopram Hydrobromide (Celexa) 10 mg PO DAILY [facility] Last Admin: 08/19/18 08:24 Dose: 10 mg Furosemide (Lasix) 20 mg PO DAILY@1200 [facility] Last Admin: 08/19/18 11:18 Dose: 20 mg Furosemide (Lasix) 40 mg PO DAILY@0800 [facility] Last Admin: 08/19/18 08:24 Dose: 40 mg Glipizide (Glucotrol) 2.5 mg PO DAILY [facility] Last Admin: 08/19/18 08:24 Dose: 2.5 mg Guaifenesin (Robitussin) 200 mg PO Q4H PRN PRN Reason: Cough Vancomycin HCl 500 mg/Vancomycin HCl 750 mg/ Sodium Chloride 250 mls @ 167 mls/ hr IV ONETIME ONE Stop: 08/17/18 18:29 Last Admin: 08/17/18 17:31 Dose: 167 mls/hr Vancomycin HCl 1 gm/ Sodium (Chloride) 250 mls @ 250 mls/hr IV Q24H [facility] Last Admin: 08/18/18 17:42 Dose: 250 mls/hr Insulin Human Lispro (Humalog) 0 unit SUBCUT TIDMEALS [facility]; Protocol Last Admin: 08/19/18 11:19 Dose: 1 unit Miscellaneous Medication (Medihoney) 2 ml TP DAILY [facility] Last Admin: 08/18/18 10:28 Dose: 2 ml Miscellaneous Medication (Medihoney) 2 ml TP DAILY [facility] Miscellaneous Medication (Medihoney) 2 ml TP DAILY [facility] Last Admin: 08/19/18 09:18 Dose: Not Given Multivitamins/Minerals (Thera M Plus) 1 tab PO DAILY [facility] Last Admin: 08/19/18 08:25 Dose: 1 tab Non-Formulary Medication (Menthol [Cough Drops]) 4.6 mg MM ASDIRECTED PRN PRN Reason: Sore Throat Phytonadione (Vitamin K) 200 mcg PO DAILY@1600 [facility] Last Admin: 08/18/18 17:31 Dose: 200 mcg Sodium Chloride (Saline Flush) 10 ml FLUSH ASDIRECTED PRN PRN Reason: Keep Vein Open Last Admin: 08/18/18 17:27 Dose: 10 ml Vancomycin HCl (Pharmacy To Dose - Vancomycin) 1 dose .XX ASDIRECTED [facility] Warfarin Sodium (Coumadin) 4 mg PO SUTUWETHSA [facility] Last Admin: 08/18/18 17:31 Dose: 4 mg Warfarin Sodium (Coumadin) 6 mg PO MoFr@1600 [facility] Last Admin: 08/17/18 16:40 Dose: 6 mg Warfarin Sodium (Coumadin Sliding Scale) 1 each PO ASDIRECTED [facility] - Exam General: Reports: Alert, Oriented HEENT: Reports: Pupils Equal Neck: Reports: Supple
== END 2018-08-19 12:45 | DRG 639 ==
LOC: FB.MS 13:30
PROVIDERS: ADMIT Family Medicine; ATTEND Family Medicine
DX: E11.621 Type 2 diabetes mellitus with foot ulcer (principal); L97.511 Non-pressure chronic ulcer of other part of right foot limited to breakdown of skin; L03.031 Cellulitis of right toe; Z79.84 Long term (current) use of oral hypoglycemic drugs; I11.0 Hypertensive heart disease with heart failure; I50.9 Heart failure, unspecified; I48.91 Unspecified atrial fibrillation; Z79.01 Long term (current) use of anticoagulants; I25.10 Atherosclerotic heart disease of native coronary artery without angina pectoris; Z85.46 Personal history of malignant neoplasm of prostate; Z86.718 Personal history of other venous thrombosis and embolism; G47.30 Sleep apnea, unspecified; F32.9 Major depressive disorder, single episode, unspecified; Z85.828 Personal history of other malignant neoplasm of skin; Z86.14 Personal history of Methicillin resistant Staphylococcus aureus infection; Z79.82 Long term (current) use of aspirin; Z79.2 Long term (current) use of antibiotics; Z79.899 Other long term (current) drug therapy; Z88.7 Allergy status to serum and vaccine; Z92.3 Personal history of irradiation; Z96.649 Presence of unspecified artificial hip joint; Z96.651 Presence of right artificial knee joint; Z90.49 Acquired absence of other specified parts of digestive tract; H54.7 Unspecified visual loss; H91.90 Unspecified hearing loss, unspecified ear
CPT/HCPCS: 36415; 80048; 80053; 82962; 83036; 83735; 85025; 85610; 85651; 86140; 87040; A9270-GY; J0696; J1815; J3370; J7050

== ENCOUNTER → 2019-05-05 | Outpatient (CLI) | payer MEDICARE, BC | LOC: FB.LABPRM 04:12 | PROVIDERS: ATTEND Family Medicine | DX: I48.20 Chronic atrial fibrillation, unspecified (principal) | CPT/HCPCS: 36415; 85610 ==

== ENCOUNTER 2019-10-04 15:46 | Emergency (ER) | payer MEDICARE, BC, OTHER ==
[2019-10-04] MEDS ORDERED: Sodium Chloride 0.9% 10 ML Syringe FLUSH PRN (15:57)
[2019-10-04 16:01] VITALS: PULSE 81
--- NOTE | 2019-10-04 16:22 | EDM.PDOC ---
ED HPI GENERAL MEDICAL PROBLEM - General Chief Complaint: General Stated Complaint: POSSIBLE COVID Time Seen by Provider: 10/04/19 16:17 Source of Information: Reports: Patient, Group Home Records History Limitations: Reports: No Limitations - History of Present Illness INITIAL COMMENTS - FREE TEXT/NARRATIVE: Patient is a resident of [facility]. On 10/01/19 he developed a fever to 101.2, lethargy and hypoxemia (Sa02 87% RA). Influenza was negative, COVID-19 test is pending. IV Rocephin was given and Zithromax and Doxycycline were prescribed for presumed pneumonia, no CXR was performed. Since then, patient has become more weak, oral intake has decreased, and he has not been taking his medications. Patient denies pain or cough. PMHx significant for HTN, T2DM, Afib, CAD, CHF, and prostate CA. He is full-code. 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, Oxygen - Related Data Allergies Allergy/AdvReac Type Severity Reaction Status Date / Time Influenza Virus Vaccines Allergy Other Verified 04/10/18 01:14 Home Meds: Home Meds Multivitamins/Minerals/Lutein [Certavite SR with Lutein] 1 tab PO DAILY [History] Acetaminophen [Tylenol] 650 mg PO Q4H PRN 03/23/13 [History] Bisacodyl [Biscolax] 10 mg RECTAL Q72H PRN 03/23/13 [History] Menthol [Cough Drops] 4.6 mg MM ASDIRECTED PRN 03/23/13 [History] PEG 400/Propylene Glycol [Systane Lubricant] 1 drop EYEBOTH DAILY@199903/23/13 [History] guaiFENesin [Cough Syrup] 200 mg PO Q4H PRN 03/23/13 [History] Acetaminophen [Acetaminophen Extra Strength] 1,000 mg PO BID 12/08/17 [History] Loperamide [Imodium AD] 2 mg PO ASDIRECTED 12/08/17 [History] Betamethasone Dipropionate [Diprosone 0.05% Crm] 1 applic TOP BID PRN 02/27/18 [ History] Furosemide [Lasix] 40 mg PO BID 02/27/18 [History] Docosanol [Abreva 10%] 1 applic TP QID PRN 04/08/18 [History] Citalopram Hydrobromide [Celexa] 10 mg PO DAILY 04/10/18 [History] Sennosides/Docusate Sodium [Senna-S] 2 tab PO BID PRN 08/17/18 [History] Warfarin [Coumadin] 4 mg PO SUTUWETHFRSA 08/17/18 [History] Acetaminophen 650 mg RECTAL Q4HR 10/04/19 [History] Azithromycin 500 mg IV DAILY 10/04/19 [History] Carboxymethylcellulose Sodium [Refresh Celluvisc 1% Ophth Soln] 1 drop EYEBOTH BEDTIME 10/04/19 [History] Doxycycline Hyclate 100 mg PO DAILY 10/04/19 [History] Insulin Detemir [Levemir] 15 units SQ BEDTIME 10/04/19 [History] Potassium Chloride 20 meq PO TID 10/04/19 [History] Vitamin K2 200 mcg PO DAILY 10/04/19 [History] Warfarin [Coumadin] 2 mg PO MO 10/04/19 [History] cefTRIAXone [Rocephin] 1 gm IV DAILY 10/04/19 [History] metFORMIN HCl [Metformin HCl] 500 mg PO BID 10/04/19 [History] polyethylene glycoL 3350 [MiraLAX] 17 gm PO DAILY 10/04/19 [History] Past Medical History HEENT History: Reports: Hard of Hearing, Impaired Vision Cardiovascular History: Reports: Afib, Blood Clots/VTE/DVT, Heart Failure, Hypertension, Other (See Below) Other Cardiovascular History: venous insufficiency, chronic peripheral; fdc 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 Respiratory History: Reports: Sleep Apnea, Other (See Below) Other Respiratory History: hx of thromboemobism Gastrointestinal History: Reports: Cholelithiasis Genitourinary History: Reports: BPH, Neurogenic Bladder, Prostate Disorder, Renal Calculus, Urinary Incontinence, Other (See Below) Other Genitourinary History: cancer of prostate; 2001 radiation seeds in prostate LEAD TELLER History: Reports: None Musculoskeletal History: Reports: RA Neurological History: Reports: None Psychiatric History: Reports: Depression Endocrine/Metabolic History: Reports: Diabetes, Type II Hematologic History: Reports: Anemia, Anticoagulation Therapy Immunologic History: Reports: None Oncologic (Cancer) History: Reports: Other (See Below) Other Oncologic History: malig neoplasm prostate; skin cancer to face and right ear Dermatologic History: Reports: Other (See Below) Other Dermatologic History: stasis dermatitis RLE - Infectious Disease History Infectious Disease History: Reports: Chicken Pox, Influenza, Measles - Past Surgical History HEENT Surgical History: Reports: Cataract Surgery, Other (See Below) Other HEENT Surgeries/Procedures: Cataract surgery to left eye 2015 Cardiovascular Surgical History: Reports: None GI Surgical History: Reports: Cholecystectomy, Colonoscopy, Hernia, Inguinal Male Surgical History: Reports: Renal Calculus Musculoskeletal Surgical History: Reports: Hip Replacement, Knee Replacement, Other (See Below) Other Musculoskeletal Surgeries/Procedures:: venous ablation right leg January 2018; 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, neck surgery 2013 Dermatological Surgical History: Reports: Other (See Below) Social & Family History - Family History Family Medical History: Noncontributory - Caffeine Use Caffeine Use: Reports: Coffee ED ROS GENERAL - Review of Systems Review Of Systems: Unable To Obtain (Lethargic, AMS) Reason Not Obtained: AMS ED EXAM, GENERAL - Physical Exam Exam: See Below Exam Limited By: Altered Mental Status General Appearance: No Apparent Distress, Lethargic Eye Exam: Left Eye: EOMI (artificial right eye), PERRL (artificial right eye) Throat/Mouth: No Airway Compromise Head: Atraumatic, Normocephalic Neck: Supple Respiratory/Chest: No Respiratory Distress, Rhonchi, Wheezing Cardiovascular: Regular Rate, Rhythm, No Edema, No Murmur GI/Abdominal: Normal Bowel Sounds, Soft, Non-Tender, No Distention Extremities: Normal Range of Motion Neurological: Other (moves all four extremities, GCS=13) EKG INTERPRETATION EKG Date: 10/04/19 Time: 16:31 Rhythm: Other (and V-paced complexes) QRS: RBBB Course - Vital Signs Last Recorded V/S: Last Vital Signs Temp 37.8 C 10/04/19 17:32 Pulse 81 10/04/19 15:57 Resp 37 H 10/04/19 18:33 BP 142/62 H 10/04/19 18:33 Pulse Ox 95 10/04/19 18:33 - Orders/Labs/Meds Orders: Active Orders 24 hr Category Date Time Status EKG Documentation Completion [RC] ASDIRECTED Care 10/04/19 15:56 Active Bettencourt Catheter Insertion [Insert Urinary Catheter] [OM. Care 10/04/19 16:30 Ordered PC] Q24H RT Post Treatment Assessment [RC] Click to Edit Care 10/04/19 16:38 Active Urinary Catheter Assessment [RC] QSHIFT Care 10/04/19 16:17 Active Ang Chest [CT] Stat Exams 10/04/19 17:35 Ordered BLOOD GAS VENOUS [BG] Stat Lab 10/04/19 17:34 Ordered CULTURE BLOOD [BC] Urgent Lab 10/04/19 16:15 Received CULTURE BLOOD [BC] Urgent Lab 10/04/19 16:25 Received Sodium Chloride 0.45% 1,000 ml Med 10/04/19 17:15 Active IV ASDIRECTED Sodium Chloride 0.9% [Saline Flush] Med 10/04/19 15:57 Active 10 ml FLUSH ASDIRECTED PRN Blood Culture x2 Reflex Set [OM.PC] Urgent Oth 10/04/19 15:56 Ordered Saline Lock Insert [OM.PC] Routine Oth 10/04/19 15:57 Ordered EKG 12 Lead [EK] Stat Ther 10/04/19 15:55 Ordered Medication Orders Sodium Chloride (Sodium Chloride 0.45%) 1,000 mls @ 100 mls/hr IV ASDIRECTED JULITO Last Admin: 10/04/19 17:18 Dose: 100 mls/hr Sodium Chloride (Saline Flush) 10 ml FLUSH ASDIRECTED PRN PRN Reason: Keep Vein Open Labs: Laboratory Tests 10/04/19 10/04/19 10/04/19 Range/Units 16:15 16:15 16:15 WBC 4.6 (4.5-12.0) X10-3/uL RBC 4.80 (4.30-5.75) x10(6)uL Hgb 13.6 (13.5-17.8) g/dL Hct 42.4 (30.0-51.3) % MCV 88.2 (80-96) fL MCH 28.3 (27.7-33.6) pg MCHC 32.1 L (32.2-35.4) g/dL RDW 15.4 (11.5-15.5) % Plt Count 112 L (125-369) X10(3)uL MPV 8.9 (7.4-10.4) fL Neut % (Auto) 53.9 (46-82) % Lymph % (Auto) 38.4 H (13-37) % [place] % (Auto) 7.3 (4-12) % Eos % (Auto) 0 L (1.0-5.0) % Baso % (Auto) 0 (0-2) % Neut # (Auto) 2.5 (1.6-8.3) # Lymph # (Auto) 1.8 (0.6-5.0) # [place] # (Auto) 0.3 (0.0-1.3) # Eos # (Auto) 0.0 (0.0-0.8) # Baso # (Auto) 0.0 (0.0-0.2) # PT 22.8 H (9.0-11.1) sec INR 2.22 H (1.00-1.24) APTT (24.4-33.2) SECONDS D-Dimer, Quantitative (0.0-0.59) mg/LFEU POC VBG pH (7.31-7.41) POC VBG pCO2 (41-51) mmHG POC VBG HCO3 (23-28) mmol/L POC VBG Total CO2 (24-29) mmol/L POC VBG Base Excess (-2-3) mmol/L Sodium 149 H (135-145) mmol/L Potassium 3.7 (3.5-5.3) mmol/L Chloride 107 (100-110) mmol/L Carbon Dioxide 32 (21-32) mmol/L BUN 29 H (7-18) mg/dL Creatinine 1.6 H (0.70-1.30) mg/dL Est Cr Clr Drug Dosing TNP Estimated GFR (MDRD) 41 L (>60) BUN/Creatinine Ratio 18.1 (9-20) Glucose 199 H (80-116) mg/dL Lactic Acid (0.4-2.0) mmol/L Calcium 8.9 (8.6-10.2) mg/dL Magnesium (1.8-2.5) mg/dL Total Bilirubin 0.9 (0.1-1.3) mg/dL AST 40 H D (5-25) IU/L ALT 14 D (12-36) U/L Alkaline Phosphatase 130 H (56-112) IU/L Troponin I (4.0-60.3) pg/mL NT-Pro-B Natriuret Pep (<=450) pg/mL Total Protein 8.3 H (6.0-8.0) g/dL Albumin 2.9 L (3.2-4.6) g/dL Globulin 5.4 g/dL Albumin/Globulin Ratio 0.5 Urine Color (YELLOW) Urine Appearance (CLEAR) Urine pH (5.0-6.5) Ur Specific [place] (1.010-1.025) Urine Protein (NEGATIVE) mg/dL Urine Glucose (UA) (NORMAL) mg/dL Urine Ketones (NEGATIVE) mg/dL Urine Occult Blood (NEGATIVE) Urine Nitrite (NEGATIVE) Urine Bilirubin (NEGATIVE) Urine Urobilinogen (NEGATIVE) mg/dL Ur Leukocyte Esterase (NEGATIVE) Urine RBC (0-5) Urine WBC (0-5) Ur Squamous Epith Cells (NS,R,O) Amorphous Sediment Urine Bacteria (NS) 10/04/19 10/04/19 10/04/19 Range/Units 16:15 16:15 16:15 WBC (4.5-12.0) X10-3/uL RBC (4.30-5.75) x10(6)uL Hgb (13.5-17.8) g/dL Hct (30.0-51.3) % MCV (80-96) fL MCH (27.7-33.6) pg MCHC (32.2-35.4) g/dL RDW (11.5-15.5) % Plt Count (125-369) X10(3)uL MPV (7.4-10.4) fL Neut % (Auto) (46-82) % Lymph % (Auto) (13-37) % [place] % (Auto) (4-12) % Eos % (Auto) (1.0-5.0) % Baso % (Auto) (0-2) % Neut # (Auto) (1.6-8.3) # Lymph # (Auto) (0.6-5.0) # [place] # (Auto) (0.0-1.3) # Eos # (Auto) (0.0-0.8) # Baso # (Auto) (0.0-0.2) # PT (9.0-11.1) sec INR (1.00-1.24) APTT 37.7 H (24.4-33.2) SECONDS D-Dimer, Quantitative > 35.00 H (0.0-0.59) mg/LFEU POC VBG pH (7.31-7.41) POC VBG pCO2 (41-51) mmHG POC VBG HCO3 (23-28) mmol/L POC VBG Total CO2 (24-29) mmol/L POC VBG Base Excess (-2-3) mmol/L Sodium (135-145) mmol/L Potassium (3.5-5.3) mmol/L Chloride (100-110) mmol/L Carbon Dioxide (21-32) mmol/L BUN (7-18) mg/dL Creatinine (0.70-1.30) mg/dL Est Cr Clr Drug Dosing Estimated GFR (MDRD) (>60) BUN/Creatinine Ratio (9-20) Glucose (80-116) mg/dL Lactic Acid 2.0 (0.4-2.0) mmol/L Calcium (8.6-10.2) mg/dL Magnesium (1.8-2.5) mg/dL Total Bilirubin (0.1-1.3) mg/dL AST (5-25) IU/L ALT (12-36) U/L Alkaline Phosphatase (56-112) IU/L Troponin I (4.0-60.3) pg/mL NT-Pro-B Natriuret Pep (<=450) pg/mL Total Protein (6.0-8.0) g/dL Albumin (3.2-4.6) g/dL Globulin g/dL Albumin/Globulin Ratio Urine Color (YELLOW) Urine Appearance (CLEAR) Urine pH (5.0-6.5) Ur Specific [place] (1.010-1.025) Urine Protein (NEGATIVE) mg/dL Urine Glucose (UA) (NORMAL) mg/dL Urine Ketones (NEGATIVE) mg/dL Urine Occult Blood (NEGATIVE) Urine Nitrite (NEGATIVE) Urine Bilirubin (NEGATIVE) Urine Urobilinogen (NEGATIVE) mg/dL Ur Leukocyte Esterase (NEGATIVE) Urine RBC (0-5) Urine WBC (0-5) Ur Squamous Epith Cells (NS,R,O) Amorphous Sediment Urine Bacteria (NS) 04/20/20 04/20/20 04/20/20 Range/Units 16:25 16:37 16:45 WBC (4.5-12.0) X10-3/uL RBC (4.30-5.75) x10(6)uL Hgb (13.5-17.8) g/dL Hct (30.0-51.3) % MCV (80-96) fL MCH (27.7-33.6) pg MCHC (32.2-35.4) g/dL RDW (11.5-15.5) % Plt Count (125-369) X10(3)uL MPV (7.4-10.4) fL Neut % (Auto) (46-82) % Lymph % (Auto) (13-37) % [place] % (Auto) (4-12) % Eos % (Auto) (1.0-5.0) % Baso % (Auto) (0-2) % Neut # (Auto) (1.6-8.3) # Lymph # (Auto) (0.6-5.0) # [place] # (Auto) (0.0-1.3) # Eos # (Auto) (0.0-0.8) # Baso # (Auto) (0.0-0.2) # PT (9.0-11.1) sec INR (1.00-1.24) APTT (24.4-33.2) SECONDS D-Dimer, Quantitative (0.0-0.59) mg/LFEU POC VBG pH 7.39 (7.31-7.41) POC VBG pCO2 53.0 H (41-51) mmHG POC VBG HCO3 31.8 H (23-28) mmol/L POC VBG Total CO2 33 H (24-29) mmol/L POC VBG Base Excess 7 H (-2-3) mmol/L Sodium (135-145) mmol/L Potassium (3.5-5.3) mmol/L Chloride (100-110) mmol/L Carbon Dioxide (21-32) mmol/L BUN (7-18) mg/dL Creatinine (0.70-1.30) mg/dL Est Cr Clr Drug Dosing Estimated GFR (MDRD) (>60) BUN/Creatinine Ratio (9-20) Glucose (80-116) mg/dL Lactic Acid (0.4-2.0) mmol/L Calcium (8.6-10.2) mg/dL Magnesium 1.9 (1.8-2.5) mg/dL Total Bilirubin (0.1-1.3) mg/dL AST (5-25) IU/L ALT (12-36) U/L Alkaline Phosphatase (56-112) IU/L Troponin I 231.7 H* (4.0-60.3) pg/mL NT-Pro-B Natriuret Pep 7514 H* (<=450) pg/mL Total Protein (6.0-8.0) g/dL Albumin (3.2-4.6) g/dL Globulin g/dL Albumin/Globulin Ratio Urine Color (YELLOW) Urine Appearance (CLEAR) Urine pH (5.0-6.5) Ur Specific [place] (1.010-1.025) Urine Protein (NEGATIVE) mg/dL Urine Glucose (UA) (NORMAL) mg/dL Urine Ketones (NEGATIVE) mg/dL Urine Occult Blood (NEGATIVE) Urine Nitrite (NEGATIVE) Urine Bilirubin (NEGATIVE) Urine Urobilinogen (NEGATIVE) mg/dL Ur Leukocyte Esterase (NEGATIVE) Urine RBC (0-5) Urine WBC (0-5) Ur Squamous Epith Cells (NS,R,O) Amorphous Sediment Urine Bacteria (NS) 10/04/19 Range/Units 16:50 WBC (4.5-12.0) X10-3/uL RBC (4.30-5.75) x10(6)uL Hgb (13.5-17.8) g/dL Hct (30.0-51.3) % MCV (80-96) fL MCH (27.7-33.6) pg MCHC (32.2-35.4) g/dL RDW (11.5-15.5) % Plt Count (125-369) X10(3)uL MPV (7.4-10.4) fL Neut % (Auto) (46-82) % Lymph % (Auto) (13-37) % [place] % (Auto) (4-12) % Eos % (Auto) (1.0-5.0) % Baso % (Auto) (0-2) % Neut # (Auto) (1.6-8.3) # Lymph # (Auto) (0.6-5.0) # [place] # (Auto) (0.0-1.3) # Eos # (Auto) (0.0-0.8) # Baso # (Auto) (0.0-0.2) # PT (9.0-11.1) sec INR (1.00-1.24) APTT (24.4-33.2) SECONDS D-Dimer, Quantitative (0.0-0.59) mg/LFEU POC VBG pH (7.31-7.41) POC VBG pCO2 (41-51) mmHG POC VBG HCO3 (23-28) mmol/L POC VBG Total CO2 (24-29) mmol/L POC VBG Base Excess (-2-3) mmol/L Sodium (135-145) mmol/L Potassium (3.5-5.3) mmol/L Chloride (100-110) mmol/L Carbon Dioxide (21-32) mmol/L BUN (7-18) mg/dL Creatinine (0.70-1.30) mg/dL Est Cr Clr Drug Dosing Estimated GFR (MDRD) (>60) BUN/Creatinine Ratio (9-20) Glucose (80-116) mg/dL Lactic Acid (0.4-2.0) mmol/L Calcium (8.6-10.2) mg/dL Magnesium (1.8-2.5) mg/dL Total Bilirubin (0.1-1.3) mg/dL AST (5-25) IU/L ALT (12-36) U/L Alkaline Phosphatase (56-112) IU/L Troponin I (4.0-60.3) pg/mL NT-Pro-B Natriuret Pep (<=450) pg/mL Total Protein (6.0-8.0) g/dL Albumin (3.2-4.6) g/dL Globulin g/dL Albumin/Globulin Ratio Urine Color Yellow (YELLOW) Urine Appearance Slightly cloudy (CLEAR) Urine pH 5.0 (5.0-6.5) Ur Specific [place] 1.020 (1.010-1.025) Urine Protein 100 H (NEGATIVE) mg/dL Urine Glucose (UA) Normal (NORMAL) mg/dL Urine Ketones Negative (NEGATIVE) mg/dL Urine Occult Blood Moderate H (NEGATIVE) Urine Nitrite Negative (NEGATIVE) Urine Bilirubin Negative (NEGATIVE) Urine Urobilinogen Normal (NEGATIVE) mg/dL Ur Leukocyte Esterase Negative (NEGATIVE) Urine RBC 0-5 (0-5) Urine WBC 0-5 (0-5) Ur Squamous Epith Cells Occasional (NS,R,O) Amorphous Sediment Few Urine Bacteria Rare H (NS) Meds: Medications Generic Name Dose Route Start Last Admin Trade Name Freq PRN Reason Stop Dose Admin Sodium Chloride 1,000 mls @ 100 mls/hr 10/04/19 17:15 10/04/19 17:18 Sodium Chloride 0.45% IV 100 mls/hr ASDIRECTED JULITO Administration Sodium Chloride 10 ml 10/04/19 15:57 Saline Flush FLUSH ASDIRECTED PRN Keep Vein Open Discontinued Medications Generic Name Dose Route Start Last Admin Trade Name Freq PRN Reason Stop Dose Admin Albuterol 0 gm 10/04/19 16:34 10/04/19 17:17 Ventolin Hfa INH 10/04/19 16:35 1 puff ONETIME ONE Administration Cefepime HCl 2 gm 10/04/19 17:16 10/04/19 17:29 Maxipime IVPUSH 10/04/19 17:17 2 gm ONETIME ONE Administration Sodium Chloride 1,000 mls @ 100 mls/hr 10/04/19 16:30 Normal Saline IV ASDIRECTED JULITO Piperacillin Sod/Tazobactam 50 mls @ 100 mls/hr 10/04/19 17:20 10/04/19 17:34 Sod 3.375 gm/ Sodium Chloride IV 10/04/19 17:49 100 mls/hr .ONCE ONE Administration Iopamidol 78 ml 10/04/19 18:34 Isovue-370 (76%) IV 10/04/19 18:35 . DIRECTED ONE - Radiology Interpretation Free Text/Narrative:: CXR: Increasing bilateral infiltration compatible with pneumonia - aspiration pneumonia versus other etiologies such as COVID-19. (Dr. Hill) - Re-Assessments/Exams Free Text/Narrative Re-Assessment/Exam: 10/04/19 18:26 COVID-19 test positive per [facility] lab. notified, after discussion with family, she would like full-code status continued. 10/04/19 19:00 Patient care transferred to Dr. Santos pending CTA chest and disposition. Departure - Departure Time of Disposition: 19:00 Disposition: Still A Patient 30 Condition: Serious Clinical Impression: Pneumonia due to COVID-19 virus, Elevated troponin I level, Hypoxemia - Discharge Information Referrals: Arias Lott MD [Primary Care Provider] - Forms: ED Department Discharge Sepsis Event Note - Evaluation Sepsis Screening Result: No Definite Risk - Focused Exam Vital Signs: Vital Signs Temp Pulse Resp BP Pulse Ox 10/04/19 18:33 37 H 142/62 H 95 10/04/19 18:17 38 H 140/76 92 L 10/04/19 17:32 37.8 C 38 H 140/76 97 10/04/19 17:19 37 H 138/78 95 10/04/19 15:57 38.0 C 81 32 H 148/72 H 96 Date Exam was Performed: 10/04/19 Time Exam was Performed: 18:50 - My Orders Last 24 Hours: My Active Orders 10/04/19 15:55 EKG 12 Lead [EK] Stat 10/04/19 15:56 EKG Documentation Completion [RC] ASDIRECTED Blood Culture x2 Reflex Set [OM.PC] Urgent 10/04/19 15:57 Sodium Chloride 0.9% [Saline Flush] 10 ml FLUSH ASDIRECTED PRN Saline Lock Insert [OM.PC] Routine 10/04/19 16:15 CULTURE BLOOD [BC] Urgent 10/04/19 16:17 Urinary Catheter Assessment [RC] QSHIFT 10/04/19 16:25 CULTURE BLOOD [BC] Urgent 10/04/19 16:30 Bettencourt Catheter Insertion [Insert Urinary Catheter] [OM.PC] Q24H 10/04/19 16:38 RT Post Treatment Assessment [RC] Click to Edit 10/04/19 17:15 Sodium Chloride 0.45% 1,000 ml IV ASDIRECTED 10/04/19 17:34 BLOOD GAS VENOUS [BG] Stat 10/04/19 17:35 Ang Chest [CT] Stat - Assessment/Plan Last 24 Hours: My Active Orders 10/04/19 15:55 EKG 12 Lead [EK] Stat 10/04/19 15:56 EKG Documentation Completion [RC] ASDIRECTED Blood Culture x2 Reflex Set [OM.PC] Urgent 10/04/19 15:57 Sodium Chloride 0.9% [Saline Flush] 10 ml FLUSH ASDIRECTED PRN Saline Lock Insert [OM.PC] Routine 10/04/19 16:15 CULTURE BLOOD [BC] Urgent 10/04/19 16:17 Urinary Catheter Assessment [RC] QSHIFT 10/04/19 16:25 CULTURE BLOOD [BC] Urgent 10/04/19 16:30 Bettencourt Catheter Insertion [Insert Urinary Catheter] [OM.PC] Q24H 10/04/19 16:38 RT Post Treatment Assessment [RC] Click to Edit 10/04/19 17:15 Sodium Chloride 0.45% 1,000 ml IV ASDIRECTED 10/04/19 17:34 BLOOD GAS VENOUS [BG] Stat 10/04/19 17:35 Ang Chest [CT] Stat
[2019-10-04] MEDS ORDERED: Sodium Chloride 0.9% 1,000 ML IV SCH (16:30)
[2019-10-04] MEDS ORDERED: Albuterol 8 GM Inhaler INH ONE (16:34)
[2019-10-04] MEDS ORDERED: Sodium Chloride 0.45% 1,000 ML IV SCH (17:15)
[2019-10-04] MEDS ORDERED: Cefepime 2 GM Vial IVPUSH ONE (17:16)
[2019-10-04] MEDS ORDERED: Piperacillin/Tazobactam 3.375 GM in Sodium Chloride 0.9% 50 ML IV ONE (17:20)
--- NOTE | 2019-10-04 17:29 | CR ---
INDICATION: Hypoxia. CHEST, ONE VIEW: Portable AP upright view of the chest was obtained 10/04/19 and compared with 07/01/19 and 06/04/19. The heart is enlarged as previously with bipolar pacemaker leads unchanged in position. The aorta is tortuous with calcification in the arch. There are now significant increases in bilateral infiltration, most prominently in the left mid lung field and right lung base. The areas of infiltration may be on the basis of pneumonia. The possibility of a process such as COVID-19 pneumonia would be a consideration - correlate clinically. IMPRESSION: Increasing bilateral infiltration compatible with pneumonia - aspiration pneumonia versus other etiologies such as COVID-19. MTDD
[2019-10-04 18:34] VITALS: BP 142/62
[2019-10-04] MEDS ORDERED: Iopamidol 755 Mg/ML 100 ML Bottle IV ONE (18:34)
--- NOTE | 2019-10-04 19:48 | CT ---
INDICATION: Hypoxemia, elevated D-dimer, positive for COVID-19 COMPUTERIZED TOMOGRAPHY ANGIOGRAPHY OF THE CHEST WITH CONTRAST: Spiral 1.25 mm axial sections were obtained through the chest with 78 mL Isovue-370 at 3.5 cc/ second with sagittal and coronal reconstructions 10/04/19 and compared with recent chest x-rays. Total exam DLP was 1143.39 mGy-cm. No definite mediastinal mass is identified. Multiple lymph nodes are present in the mediastinum which may be on the basis of the extensive infiltrates present which may be on the basis of pneumonia. No definite mediastinal mass was identified. Calcifications are noted in the arch of the aorta and descending aorta as well as coronary arteries. The heart is enlarged. No pericardial effusion was seen. There is some limitation of views because of the patient's inability to cooperate with the examination fully. There appears to be some renal cortical thinning at the left kidney. Renal calcinosis is noted with multiple calculi suggested. The gallbladder is absent compatible with history of its removal. Extensive bilateral infiltrates are present which have somewhat of a predominant peripheral appearance compatible with COVID-19 although other cause cannot be entirely excluded. Bilateral pleural effusions are noted, larger on the left - moderate on the left, small on the right. No definite evidence for PE could be identified. IMPRESSION: 1. No evidence of PE. 2. Bilateral predominantly peripheral infiltration which could represent a process such as COVID-19 although aspiration pneumonia would also be a consideration. Pleural effusions are present bilaterally, larger on the left. 3. ASHD with cardiomegaly. 4. ASD. 5. Post-cholecystectomy. 6. Atrophic-appearing left kidney with thinning of the cortex. 7. Renal calcinosis. Report was called to Dr. Salter at 1913 hours. [facility]
[2019-10-04] MEDS ORDERED: Meclizine 25 MG Tab PO ONE (19:53)
[2019-10-04] MEDS ORDERED: LORazepam 2 MG/ML SDV IM STA (19:53)
== END 2019-10-04 20:50 ==
LOC: FB.ED 15:46
DX: J18.9 Pneumonia, unspecified organism (principal); U07.1 COVID-19; R79.89 Other specified abnormal findings of blood chemistry; R09.02 Hypoxemia; I48.91 Unspecified atrial fibrillation; I11.0 Hypertensive heart disease with heart failure; I50.9 Heart failure, unspecified; M06.9 Rheumatoid arthritis, unspecified; F32.9 Major depressive disorder, single episode, unspecified; E11.9 Type 2 diabetes mellitus without complications; Z79.01 Long term (current) use of anticoagulants; Z79.4 Long term (current) use of insulin; Z79.899 Other long term (current) drug therapy
CPT/HCPCS: 36415; 51702; 71045; 71275; 80053; 81001; 82803; 83605; 83735; 83880; 84484; 85025; 85379; 85610; 85730; 87040; 93005; 93010; 96361; 96374; 96375; 99285; A9270; J0692; J2543; J3490; J7050; Q9967